=== PATIENT | female | born 1960 | race Caucasian/White ===

== ENCOUNTER 2016-09-12 14:04 | Inpatient (IN) | payer OTHER ==
[2016-09-12] VITALS (9 sets, daily range): BP systolic 121–146; BP diastolic 75–94; PULSE 64–72; TEMP 36.4–36.6; O2SAT 96–99; Ht 165.1 cm; Wt 98.5 kg
[~2016-09-12] VITALS: Ht 165.1 cm; Wt 98.5 kg
[2016-09-12] MEDS ORDERED: FURO-85 PO (14:35)
[2016-09-12] MEDS ORDERED: PRM625 PO (14:35)
[2016-09-12] MEDS ORDERED: ASCA500 PO (14:35)
[2016-09-12] MEDS ORDERED: DOCU-94 PO (14:35)
[2016-09-12] MEDS ORDERED: HYDR-5688 PO (14:35)
[2016-09-12] MEDS ORDERED: FLUO5CRE TOP (14:35)
[2016-09-12] MEDS ORDERED: ZVRO TOP (14:35)
[2016-09-12] MEDS ORDERED: LORA-741 PO (14:35)
[2016-09-12] MEDS ORDERED: PRED10TA PO (14:35)
[2016-09-12] MEDS ORDERED: POLY150C4 PO (14:35)
[2016-09-12] MEDS ORDERED: CHOL1000 PO (14:35)
[2016-09-12] MEDS ORDERED: OMEP20CA59 PO (14:35)
[2016-09-12] MEDS ORDERED: METO50TA7 PO (14:35)
[2016-09-12] MEDS ORDERED: TACR5CAP PO (14:35)
[2016-09-12] MEDS ORDERED: CALC-354 PO (14:35)
[2016-09-12 15:09] LABS: HEMATOCRIT 25.4 % (37-47); MEAN CELL VOLUME 84.4 fL (80-100); MEAN CORPUSCULAR HEMOGLOBIN 25.9 pg (25-34); MEAN CORPUSCULAR HGB CONC 30.7 g/dl (32-36); MEAN PLATELET VOLUME 10.9 fL (7.4-10.4); PLATELET COUNT 424 K/uL (130-400); RED BLOOD COUNT 3.01 M/uL (4.2-5.4); WHITE BLOOD COUNT 9.65 K/uL (4.8-10.8)
[2016-09-12 15:19] LABS: PARTIAL THROMBOPLASTIN RATIO 0.9; PROTHROMBIN TIME (PATIENT) 10.6 SECONDS (9.0-12.0)
[2016-09-12 15:29] LABS: ALT/SGPT 12 U/L (12-78); AST/SGOT 10 U/L (15-37); BLOOD UREA NITROGEN 35 mg/dl (7-18); BUN/CREATININE RATIO 20.4 (10-20); CALCIUM 8.6 mg/dl (8.5-10.1); CARBON DIOXIDE 23 mmol/L (21-32); CHLORIDE 107 mmol/L (98-107); GLUCOSE 121 mg/dl (70-99); POTASSIUM 4.4 mmol/L (3.5-5.1); SODIUM 140 mmol/L (136-145)
[2016-09-12 15:34] LABS: ALKALINE PHOSPHATASE 208 U/L (45-117)
[2016-09-12 15:40] LABS: BASO % 0.3 %; BASO ABS # 0.03 K/uL (0-0.2); COMPLETE YES; HYPOCHROMIA PRESENT; IG% 0.6 %; LYMPH % 21.7 %; LYMPH ABS # 2.09 K/uL (1.2-3.4); MONO % 2.7 %; NEUT % 73.7 %
--- NOTE | 2016-09-12 15:58 | DIAGNOSTIC IMAGING REPORT ---
LEFT LOWER EXTREMITY VENOUS DOPPLER CLINICAL HISTORY: Left leg pain. COMPARISON STUDY: No previous studies for comparison. TECHNIQUE: Sonography of the deep venous system of the left lower extremity was performed. Compression and augmentation were evaluated. FINDINGS: This exam was mildly compromised due to pain with compression. The common femoral, superficial femoral and popliteal veins were compressible. Augmentation was normal. Flow was shown within the deep calf vessels. IMPRESSION: Study mildly compromised due to difficulty with compression but no evidence of deep venous thrombus within the left lower extremity. Electronically signed by: Francisco Huggins M.D. 09/12/2016 3:56 PM Dictated Date/Time: 09/12/2016 3:54 PM
--- NOTE | 2016-09-12 16:14 | DIAGNOSTIC IMAGING REPORT ---
CHEST ONE VIEW PORTABLE CLINICAL HISTORY: sob eval for pnea dyspnea COMPARISON STUDY: No previous studies for comparison. FINDINGS: The bones soft tissues and hemidiaphragms are normal. The cardiomediastinal silhouette is normal. The lungs are clear. The pulmonary vasculature is normal. IMPRESSION: Negative chest. Electronically signed by: Nomi Borrero M.D. 09/12/2016 4:13 PM Dictated Date/Time: 09/12/2016 4:13 PM
[2016-09-12] MEDS ORDERED: ONDANSETRON INJ 2 MG/ML 2 ML VIAL IV PRN (16:15)
[2016-09-12] MEDS ORDERED: ACETAMINOPHEN 325 MG TAB PO PRN (16:15)
[2016-09-12] MEDS ORDERED: ASPEC81 PO (16:36)
[2016-09-12] MEDS ORDERED: FLUT0.15 (16:36)
[2016-09-12] MEDS ORDERED: LORAZEPAM 0.5 MG TAB PO PRN (16:45)
[2016-09-12] MEDS ORDERED: HYDROCODONE/ACETAMOPHEN 5/325MG TAB PO PRN (16:45)
[2016-09-12 17:07] LABS: FERRITIN 16.7 ng/ml (8.0-388.0)
--- NOTE | 2016-09-12 17:55 | DIAGNOSTIC IMAGING REPORT ---
CHEST CT WITHOUT CONTRAST CT DOSE: 341.15 mGy.cm HISTORY: possible lymphoma found in abdomen TECHNIQUE: Multiaxial CT images of the chest were performed without contrast. COMPARISON: None. FINDINGS: The central airways are patent. No pleural effusions. No pneumothorax. A few linear densities within the bilateral lower lung zones favor subsegmental atelectasis. Otherwise, the lungs are clear. No suspicious pulmonary nodules. There is 1 cm faint sclerotic focus within the left side of the T2 vertebral body. Limited views of the upper abdomen demonstrate a normal liver, spleen, and adrenal glands. The [place] kidneys are severely atrophic. No suprapatellar, mediastinal, or hilar lymphadenopathy. Normal caliber thoracic aorta. No enlarged axillary lymph nodes. IMPRESSION: 1. No lymphadenopathy within the chest. 2. Severely atrophic [place] kidneys. 3. An indeterminate 1 cm sclerotic focus within the T2 vertebral body. Bone scan may help for further evaluation to exclude a metabolically active lesion. Electronically signed by: Pablito Mead M.D. 09/12/2016 5:54 PM Dictated Date/Time: 09/12/2016 5:49 PM
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
--- NOTE | 2016-09-12 20:28 | EMERGENCY ROOM VISIT NOTE ---
History Report prepared by Christie: Arin Antunez Under the Supervision of: Dr. Shiva Castillo M.D. First contact with patient: 14:31 Chief Complaint: REFERRED BY DOCTOR Stated Complaint: DOCTOR REFERRAL History of Present Illness The patient is a 56 year old female who presents to the Emergency Room with complaints of worsening generalized abdominal pain over the past 2 months. The patient states that she initially developed some intermittent abdominal pain around [place], but it has since become more consistent and intense in severity over the past month. Today, she had blood work and a CT scan and was referred to the ED today due to a hemoglobin of 7.8. She has not yet heard back with her CT results. Currently, patient also complains of feeling short of breath with exertion and feeling generally tired. She notes that she injured her left [place] around [place] but did not follow up with her doctor until recently. She was told that she had an ulcerated vein and was referred to the wound clinic. She has not yet been seen by the wound clinic or put on antibiotics. Denies fever, nausea, vomiting, diarrhea, or other complaints. The patient is on Prograf due to a history of a kidney transplant. Her most recent transplant was about 8 years ago. She follows with Dr. Clay. Source of History: patient Onset: 2 months ago Position: abdomen Timing: worsening Associated Symptoms: + SOB, No diarrhea, No fevers, No nausea, No vomiting Note: Other symptoms: tired Review of Systems See HPI for pertinent positives & negatives. A total of 10 systems reviewed and were otherwise negative. Past Medical & Surgical Medical Problems: (1) Depression (2) Dermoid cyst of ovary (3) GERD (gastroesophageal reflux disease) (4) HTN (hypertension) Surgical Problems: (1) H/O tubal ligation (2) History of appendectomy (3) Renal transplant, status post (4) retina detachment repair (5) S/P lumbar fusion (6) S/P GENE-BSO Family History FH: breast cancer SISTER FH: lymphoma FATHER ( at age 72) Social History Smoking Status: Never Smoker Current/Historical Medications Scheduled Acyclovir (Zovirax), 1 APPLN TOP UD Ascorbic Acid (Vitamin C), 500 MG PO DAILY Aspirin (Aspirin EC Low Dose), 81 MG PO DAILY Calcium Carbonate-Cholecalcife (Caltrate 600+D), 1 TAB PO DAILY Cholecalciferol (Vitamin D3), 1 TAB PO DAILY Estrogens, Conjugated (Premarin), 0.625 MG PO DAILY Fluticasone Propionate (Nasal) (Flonase Allergy Relief), 2 SPRAYS NA DAILY Metoprolol Succ (Toprol Xl) (Toprol-Xl), 50 MG PO DAILY Omeprazole (Prilosec), 20 MG PO BID Polysaccharide Iron Complex (Ferrex 150), 150 MG PO BID Prednisone (Prednisone), 10 MG PO DAILY Tacrolimus (Prograf), 5 MG PO BID Scheduled PRN Docusate Sodium (Colace), 1 CAP PO BID PRN for Constipation Furosemide (Lasix), 20 MG PO DAILY PRN for edema Hydrocodone/Acetaminophen 5MG/325MG ([place] 5MG/325MG), 1 TABLET PO Q6 PRN for Pain Lorazepam (Ativan), 0.5 MG PO BID PRN for Anxiety Allergies Coded Allergies: No Known Allergies (Unverified , 09/12/16) Physical Exam Vital Signs Date Time Temp Pulse Resp B/P Pulse Ox O2 Delivery O2 Flow Rate FiO2 09/12/16 19:31 36.6 72 18 137/92 99 09/12/16 19:27 36.6 64 18 146/92 99 Room Air 09/12/16 19:22 36.6 64 18 146/92 99 09/12/16 17:30 72 18 148/98 99 Room Air 09/12/16 16:30 70 20 198/100 99 Room Air 09/12/16 16:13 68 09/12/16 14:56 65 18 142/100 95 Room Air 09/12/16 14:08 36.7 70 18 171/95 99 Room Air Physical Exam Constitutional: Vital signs reviewed. Eyes: Pupils are equal round reactive to light. Conjunctiva are noninjected. ENT: Pharynx is clear without erythema or exudate. Mucous membranes are moist. Neck supple without meningeal signs. Respiratory: Clear to auscultation bilaterally. Breath sounds are equal bilaterally. Cardiovascular: Regular rate and rhythm. No rubs or gallops. GI: Soft, nondistended, diffuse abdominal tenderness, no rebound. Bowel sounds are present. Musculoskeletal: No calf tenderness, left leg with a lateral quarter sized ulceration with mild surrounding erythema, without increased warmth or discharge. Integumentary: No cyanosis. Neurological: The patient is awake and alert. No focal deficits. Psychiatric: Normal affect. Medical Decision & Procedures ER Provider Diagnostic Interpretation: Radiology results as stated below per my review and the radiologist's interpretation: LEFT LOWER EXTREMITY VENOUS DOPPLER CLINICAL HISTORY: Left leg pain. COMPARISON STUDY: No previous studies for comparison. TECHNIQUE: Sonography of the deep venous system of the left lower extremity was performed. Compression and augmentation were evaluated. FINDINGS: This exam was mildly compromised due to pain with compression. The common femoral, superficial femoral and popliteal veins were compressible. Augmentation was normal. Flow was shown within the deep calf vessels. IMPRESSION: Study mildly compromised due to difficulty with compression but no evidence of deep venous thrombus within the left lower extremity. Electronically signed by: Francisco Huggins M.D. 09/12/2016 3:56 PM Dictated Date/Time: 09/12/2016 3:54 PM CHEST ONE VIEW PORTABLE CLINICAL HISTORY: sob eval for pnea dyspnea COMPARISON STUDY: No previous studies for comparison. FINDINGS: The bones soft tissues and hemidiaphragms are normal. The cardiomediastinal silhouette is normal. The lungs are clear. The pulmonary vasculature is normal. IMPRESSION: Negative chest. Electronically signed by: Nomi Borrero M.D. 09/12/2016 4:13 PM Dictated Date/Time: 09/12/2016 4:13 PM Laboratory Results 09/12/16 14:50 Red Blood Count 3.01, Mean Corpuscular Volume 84.4, Mean Corpuscular Hemoglobin 25.9, Mean Corpuscular Hemoglobin Concent 30.7, Mean Platelet Volume 10.9, Neutrophils (%) (Auto) 73.7, Lymphocytes (%) (Auto) 21.7, Monocytes (%) (Auto) 2.7, Eosinophils (%) (Auto) 1.0, Basophils (%) (Auto) 0.3, Neutrophils # (Auto) 7.11, Lymphocytes # (Auto) 2.09, Monocytes # (Auto) 0.26, Eosinophils # (Auto) 0.10, Basophils # (Auto) 0.03 09/12/16 14:50 Test 09/12/16 14:50 09/12/16 17:05 White Blood Count 9.65 K/uL (4.8-10.8) Red Blood Count 3.01 M/uL (4.2-5.4) Hemoglobin 7.8 g/dL (12.0-16.0) Hematocrit 25.4 % (37-47) Mean Corpuscular Volume 84.4 fL (80-100) Mean Corpuscular Hemoglobin 25.9 pg (25-34) Mean Corpuscular Hemoglobin Concent 30.7 g/dl (32-36) Platelet Count 424 K/uL (130-400) Mean Platelet Volume 10.9 fL (7.4-10.4) Neutrophils (%) (Auto) 73.7 % Lymphocytes (%) (Auto) 21.7 % Monocytes (%) (Auto) 2.7 % Eosinophils (%) (Auto) 1.0 % Basophils (%) (Auto) 0.3 % Neutrophils # (Auto) 7.11 K/uL (1.4-6.5) Lymphocytes # (Auto) 2.09 K/uL (1.2-3.4) Monocytes # (Auto) 0.26 K/uL (0.11-0.59) Eosinophils # (Auto) 0.10 K/uL (0-0.5) Basophils # (Auto) 0.03 K/uL (0-0.2) RDW Standard Deviation 43.2 fL (36.4-46.3) RDW Coefficient of Variation 14.0 % (11.5-14.5) Immature Granulocyte % (Auto) 0.6 % Immature Granulocyte # (Auto) 0.06 K/uL (0.00-0.02) Nucleated RBC Absolute Count (auto) 0.00 K/uL (0-0) Nucleated Red Blood Cells % 0.0 % Hypochromasia PRESENT Prothrombin Time 10.6 SECONDS (9.0-12.0) Prothromb Time International Ratio 1.0 (0.9-1.1) Activated Partial Thromboplast Time 22.4 SECONDS (21.0-31.0) Partial Thromboplastin Ratio 0.9 Anion Gap 10.0 mmol/L (3-11) Est Creatinine Clear Calc Drug Dose 42.6 ml/min Estimated GFR () 38.1 Estimated GFR (Non- 32.9 BUN/Creatinine Ratio 20.4 (10-20) Uric Acid 9.0 mg/dl (2.6-7.2) Calcium Level 8.6 mg/dl (8.5-10.1) Iron Level 13 mcg/dl (35-150) Total Iron Binding Capacity 298 mcg/dl (250-450) Transferrin 228 mg/dl (200-360) Transferrin % Saturation 4 % (15-50) Ferritin 16.7 ng/ml (8.0-388.0) Total Bilirubin 0.2 mg/dl (0.2-1) Direct Bilirubin < 0.1 mg/dl (0-0.2) Aspartate Amino Transf (AST/SGOT) 10 U/L (15-37) Alanine Aminotransferase (ALT/SGPT) 12 U/L (12-78) Alkaline Phosphatase 208 U/L (45-117) Lactate Dehydrogenase 322 U/L (84-246) Troponin I < 0.015 ng/ml (0-0.045) Total Protein 7.2 gm/dl (6.4-8.2) Albumin 2.7 gm/dl (3.4-5.0) Lipase 157 U/L (73-393) Hepatitis B Surface Antigen NEG (NEG) Hepatitis C Antibody NEG (NEG) Folate 21.09 ng/mL (>5.38) Laboratory results as reviewed by me. ECG Indication: SOB/dyspnea Rate (beats per minute): 73 Rhythm: normal sinus Findings: Q waves (V1 & V2), no ectopy ED Course 1435: The patient was evaluated in room B12A. A complete history and physical exam was performed. 1500: I talked to her about test results and she gave consent for blood transfusion. 1503: I discussed the case with Nehemias Leal PA-C - General Surgery. He will talk to Dr. Vargas about the case. 1524: I discussed the case with ALMITA Marshall - [facility]. The patient will be evaluated for further management. 1631: I reassessed the patient. The hospitalist was evaluating the patient. We are still waiting for blood products. 1711: I reassessed the patient. Blood products have not arrived yet. She was evaluated by Dr. Vargas who said there is no need for surgery at this time. 1914: I reassessed the patient. She was starting transfusion. Vital signs are stable. Medical Decision This is a 56-year-old female who presents with low hemoglobin and shortness of breath with abdominal pain. Differential diagnosis includes symptomatic anemia , GI bleed, diverticulitis, perforation, abscess, mass. I did perform a limited focused review of portions of the patient's old chart on the electronic medical record. The patient has had no prior visits to this hospital. I did obtain records from the [facility] system. Her hemoglobin was 7.8 today. She had a CAT scan which demonstrated a masslike circumferential thickening involving the small bowel within the central abdomen with enlarged mesenteric lymph nodes. This is suggestive of lymphoma. She also had trace high density fluid in the posterior pelvis suggestive of hemoperitoneum. I did evaluate the patient as noted above. After obtaining the results of the CT scan I did consult surgery. I did discuss the case with the surgical PA who also spoke to Dr. Baltazar. They recommended admission to medicine and they will consult. IV access was established. The patient was placed on a continuous payment collector. I did order and personally review the patient's 12- lead EKG and chest x-ray as described above. I did order and review the patient 's blood work as noted in the electronic medical record. She is significantly anemic. I did order a Doppler ultrasound of lower extremity. I did review the images myself as well as the radiology report as described above. There is no evidence of DVT in the left leg. I did obtain consent for transfusion due to her symptomatic anemia. She was transfused 2 units of crossmatched blood. Dr. Baltazar did see the patient in the emergency department. I did discuss case with the hospitalist and block and case maker. Consults Time Called: 1500 Consulting Physician: Nehemias Leal PA-C - General Surgery Returned Call: 1503 I discussed the case with him. He will talk to Dr. Vargas about the case. Additional Consults: Time Called: 1520 Consulted Physician: ALMITA Marshall - [facility] Returned Call: 1521 Additional Comments: I discussed the case with her. The patient will be evaluated for further management. Impression Primary Impression: Symptomatic anemia Additional Impressions: Abdominal mass Hemoperitoneum Critical Care I have personally spent greater than 30 minutes of critical care time in the direct management of this patient. This includes bedside care, interpretation of diagnostic studies, and testing, discussion with consultants, patient, and family members, and other required patient management activities. This 30 minutes is in excess of all separately billable procedures. Scribe Attestation The scribe's documentation has been prepared under my direct and personally reviewed by me in its entirety. I confirm that the note above accurately reflects all work, treatment, procedures, and medical decision making performed by me. Departure Information Dispostion Being Evaluated By Hospitalist Referrals Dontae Mei M.D. (PCP) Patient Instructions My [facility] Problem Qualifiers
[2016-09-12] MEDS ORDERED: SODIUM CHLORIDE 0.9% 1000ML 1,000 ML IV SCH (22:00)
[2016-09-12] MEDS: PANTOprazole SOD 40 MG TAB PO SCH (22:29)
[2016-09-12] MEDS: IRON COMPLEX POLYSACCHARIDE W/VIT C 150 MG CAP PO SCH (22:29)
[2016-09-12] MEDS: TACROLIMUS 1 MG CAP PO SCH (22:30)
[2016-09-12] MEDS: DOCUSATE SODIUM 100 MG CAP PO PRN (22:32)
[2016-09-13] VITALS (12 sets, daily range): BP systolic 115–152; BP diastolic 75–91; PULSE 64–72; TEMP 36.5–36.9; O2SAT 94–98
[2016-09-13 01:35] LABS: HEMATOCRIT 28.8 % (37-47)
--- NOTE | 2016-09-13 07:18 | SURGERY PROGRESS NOTE ---
DATE: 09/13/2016 Complaining of some lower abdominal pain, nothing more significant than she had last night. She points over to the infraumbilical area down towards her pelvis. Her last vitals showed a temperature of 36.9, pulse 69, respirations 18, blood pressure 152/91, O2 sats 94 on room air. She did receive 2 units of blood yesterday. Her laboratory this morning is pending, but it was 9.4 at 1:00 in the morning. The abdomen is unchanged from yesterday. She does have what appears to be an incarcerated supraumbilical. Cannot feel whether or not it is infraumbilical, but is not strangulated. Her abdomen certainly is not obstructive pattern. I am unable to at this point visualize the CAT scan that was done at [facility]. We just have the report. We will try to see if we can have it transferred here so I can go over with the radiologist, but I did tell Alva most likely she will need an exploration for 2 reasons; one is to fix that hernia that is symptomatic and also to get a tissue diagnosis what is going on in the belly. But again I have no real imaging to outline a more formative plan for surgery. We will try to get stabilize her hemodynamically today with her increased hemoglobin and I told her that tentatively we may have her on for tomorrow. She would like to have something p.o. for pain. She does well with tramadol and I took the liberty of ordering that.
--- NOTE | 2016-09-13 07:28 | DIAGNOSTIC IMAGING REPORT ---
ABDOMINAL ULTRASOUND TO ASSESS FOR HEMOPERITONEUM CLINICAL HISTORY: Follow-up of hemoperitoneum. Anemia. COMPARISON STUDY: None available at time of interpretation. FINDINGS: There is a small amount of fluid within the left lower quadrant, lateral to the renal transplant. This appears complex. In addition, there is a 3.8 x 3.3 x 3.2 cm mixed echogenicity round abnormality within left upper quadrant which is indeterminate. IMPRESSION: 1. Small amount of complex fluid within the left lower quadrant, lateral to the renal allograft. While nonspecific, this may reflect hemoperitoneum and could be correlated with prior CT. 2. 3.8 x 3.3 x 3.2 cm round mixed echogenicity abnormality within the left upper quadrant. This is indeterminate and could represent a pathologic lymph node, mass or less likely normal structure. Correlation with prior CT is recommended. Electronically signed by: Francisco Huggins M.D. 09/13/2016 7:26 AM Dictated Date/Time: 09/13/2016 7:15 AM
--- NOTE | 2016-09-13 08:49 | SURGERY PROGRESS NOTE ---
DATE: 09/13/2016 DATE: 09/13/2016. Approximately an hour ago I was able to review the CAT scan that was blown in from [facility] regarding Alva Cyr. I reviewed it with Dr. Huggins. The patient has significant dilated thickened small bowel nonobstructing with surrounding lymphadenopathy, most likely lymphoma. She also has symptomatic hernia. I tentatively had her on the schedule for tomorrow and then I discussed the case with Dr. Clay who already had been consulted on and felt that maybe given the circumstances of a renal transplant and the immunosuppressive therapy she may be best served transferring to a tertiary center for her care. I strongly agree with his recommendations. Therefore, we will discuss it later with the patient and he will discuss it with the medical service to possibly make those arrangements. I did discuss with Dr. Clay that this is nothing urgent that needs to be done but certainly needs to be addressed as far as her timing of diagnostic workup.
[2016-09-13 08:52] LABS: HEMATOCRIT 32.3 % (37-47); MEAN CELL VOLUME 84.3 fL (80-100); MEAN CORPUSCULAR HEMOGLOBIN 27.2 pg (25-34); MEAN CORPUSCULAR HGB CONC 32.2 g/dl (32-36); MEAN PLATELET VOLUME 10.8 fL (7.4-10.4); PLATELET COUNT 403 K/uL (130-400); RED BLOOD COUNT 3.83 M/uL (4.2-5.4); WHITE BLOOD COUNT 12.36 K/uL (4.8-10.8)
[2016-09-13] MEDS: FLUTICASONE PROPIONATE NA SPR 16 GM BTL SCH ×2 (08:55→09:12)
[2016-09-13] MEDS: PANTOprazole SOD 40 MG TAB PO SCH ×2 (08:56→21:12)
[2016-09-13] MEDS: TACROLIMUS 1 MG CAP PO SCH (08:56)
[2016-09-13] MEDS ORDERED: ASCORBIC ACID 500 MG TAB PO SCH (09:00)
[2016-09-13] MEDS ORDERED: ESTROGENS, CONJUGATED 0.625 MG TAB PO SCH (09:00)
[2016-09-13] MEDS ORDERED: CHOLECALCIFEROL 1000 INTER.UNIT TAB PO SCH (09:00)
[2016-09-13] MEDS ORDERED: CALCIUM 600MG + VIT D 400 IU TAB PO SCH (09:00)
[2016-09-13] MEDS: IRON COMPLEX POLYSACCHARIDE W/VIT C 150 MG CAP PO SCH ×2 (09:00→21:12)
[2016-09-13] MEDS ORDERED: METOPROLOL SUCC 50MG EXT REL TAB PO SCH (09:00)
[2016-09-13 09:14] LABS: BUN/CREATININE RATIO 18.8 (10-20); CREATININE 1.8 mg/dl (0.60-1.20); POTASSIUM 4.1 mmol/L (3.5-5.1)
[2016-09-13] MEDS: TRAMADOL HCL 50 MG TAB PO PRN ×2 (09:58→16:42)
--- NOTE | 2016-09-13 10:12 | NEPHROLOGY CONSULTATION ---
DATE OF CONSULTATION: 09/13/2016 DATE OF CONSULTATION: 09/13/2016. ATTENDING OF RECORD: Dr. Sethi. REASON FOR CONSULTATION: Renal transplant. 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 The patient did have a second donor transplant in 2005. No rejections of the second transplant. The patient with end-stage renal disease from [facility]. Biopsy of her original kidneys was done in [facility] in 1987. She does have history of hypertension as well as fibromyalgia. She does have a history of total hysterectomy for an ovarian mass about 4 years ago. Does have spinal stenosis with 2 herniated discs and underwent back surgery in November of 2015. The patient has been on Prograf 5 mg b.i.d. and prednisone 5 mg a day for underlying adrenal insufficiency as well as her transplant. Has been on prednisone since her first transplant in 1990. Not on any CellCept. Creatinine has been stable with no rejection of the second kidney. Does have underlying hypertension. Last Prograf level was last April at 5.8. Previous ones have ranged in the 6-7 range and no changes to her Prograf dosage in recent years. The patient was visiting in [place] and started to develop worsening abdominal pain, abdominal distention, decreased appetite for the past 4-6 weeks. The patient underwent imaging. The patient had a mass-like circumferential thickening involving segment of the small bowel in her central abdomen with multiple enlarged mesenteric lymph nodes, most suggestive of a neoplastic process with lymphoma most likely. 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 The patient also has a periumbilical hernia. The patient currently is on IV fluids, although eating and drinking well. REVIEW OF SYSTEMS: No fevers or chills. No significant weight loss, weight gain. No headaches, no blurry vision, no dysphagia, no nausea or vomiting, moving her bowels well. Does have abdominal bloating and abdominal pain. No rash or itching. No dysuria or hematuria. Does suffer from chronic back pain. All other review of systems otherwise negative. PAST MEDICAL HISTORY: [facility] requiring end-stage renal disease, underwent 2 transplants, fibromyalgia, hypertension, hyperlipidemia, skin cancer, degenerative disc disease, osteoporosis. PAST SURGICAL HISTORY: Two kidney transplants, tubal ligation, appendectomy, retinal surgery, L3-L4 fusion, hysterectomy secondary to an ovarian mass. FAMILY HISTORY: Significant for father with lymphoma. SOCIAL HISTORY: The patient is single. No smoking, no alcohol, no drugs. CURRENT MEDICATIONS: Vitamin C 500 mg a day, vitamin D 1000 units a day, estrogen 0.625 mg daily, Flonase 2 sprays daily, Toprol-XL 50 mg daily, prednisone 10 mg a day, Caltrate 1 tab daily, normal saline at 50 mL an hour, iron complex 150 mg p.o. b.i.d., Prograf 5 mg p.o. b.i.d., Protonix 40 mg p.o. b.i.d., Colace as needed. PHYSICAL EXAMINATION: VITAL SIGNS: Temperature 36.7, pulse 72, respiratory rate 18, blood pressure 147/87, satting 94% on room air. GENERAL: Awake, alert, oriented x3. EYES: No scleral icterus. EARS, NOSE, THROAT: Moist mucous membranes. NECK: Supple. PULMONARY: Clear to auscultation. CARDIAC: Regular rate and rhythm. ABDOMEN: Positive abdominal tenderness with distention. EXTREMITIES: No significant clubbing, cyanosis with some mild edema. NEUROLOGICALLY: Nonfocal. DERM: No rash or ulcers noted. LABORATORY DATA: Sodium was 140, potassium 4.4, chloride 107, bicarb is 23, BUN is 35, creatinine is 1.7, glucose 121, calcium is 8.6, albumin is 2.7. H\T\H 9.4 and 28.8, white count 9.6, platelet count is 424, hepatitis negative. INR is 1. Two units of leukoreduced irradiated packed red blood cells were transfused last night. Abdominal ultrasound shows small amount of complex fluid within the left lower quadrant lateral to the renal allograft. While nonspecific this may reflect a hemoperitoneum. There is 3.8 x 3.3 x 3.2 round mixed echogenicity abnormality within the left upper quadrant could represent a pathologic lymph node. Chest CT shows no lymphadenopathy within the chest, severely atrophic [place] kidneys, indeterminate sclerotic focus within T2 particular body. IMPRESSION AND PLAN: donor transplant with stable creatinine of 1.7 on Prograf 5 mg p.o. b.i.d. as well as prednisone 10 mg a day with drug levels between 5 to 8. 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 Would stop CellCept if she was on it but currently only on prednisone and Prograf. Would not recommend stopping the Prograf completely at this time, would just minimize the dose to level of 3 to 5. The difficulty here is that the Prograf levels are send out at [facility]. We will order level for tomorrow morning; however, feel the more prudent course would be to transfer to tertiary [facility] where we could get Prograf levels more quickly and adjust the dose accordingly. Could undergo surgery at the [facility] to be reviewed by the pathologist there and then if this is a lymphoma would be appropriately staged and started on appropriate medications. If it is decided that the patient is given rituximab we can continue to wean down the Prograf accordingly given that the rituximab would be protective for the kidney transplant. Case was discussed with Dr. Vargas of surgery as well as Dr. Sethi the primary hospitalist. Will reduce the Prograf to 4 mg p.o. b.i.d. Stop the IV fluids since the patient is eating and drinking well and follow levels as best as we can while we contact tertiary [facility] for possible transfer. Appreciate consultation. ANA
--- NOTE | 2016-09-13 12:03 | Progress Note ---
Internal Med Progress Note Date of Service: Sep 13, 2016. Provider Documentation: SUBJECTIVE: The patient was seen and examined Still has minimal Abdominal pain No Nausea and or vomiting No CP,palpitation,SOB OBJECTIVE: Vital Signs-as noted below Exam: General-no distress at rest Eyes-normal ENT-normal Neck-supple Lungs-Clear to ausucltate bilaterally Heart-Regular,no murmur Abdomen-Mildly distended,small Umbilical hernia Mildly tender central and lower abdomen Extremities-No edema Neuro-AAOx3 Lab data as noted below. 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 Masslike circumferential thickening involving a segment of small bowel in the central abdomen, with multiple enlarged mesenteric lymph nodes. Appearance is most suggestive of a neoplastic process, with lymphoma felt most likely. 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 2. Trace high-density fluid in the posterior pelvis suggestive of hemoperitoneum. -discussed with Dr. Benavides - will order hepatitis panel, LDH, uric acid, haptoglobin, peripheral smear - CT chest negative for further lymphadenectomy; did show possible lesion at T2 - surgery input appreciated -likely to need surgery and likely to get more benefit if it is done in a tertiary center HEMOPERITONEUM S/P History of Fall Hb dropped-received 2 units of PRBC ANEMIA - possibly due to underlying newly diagnosed lymphoma and CKD - transfuse with 2units irradiated PRBC due to hx transplant -has low Iron level -Iron supplement started EXERTIONAL SHORTNESS OF BREATH - likely due to symptomatic anemia - saturating well on room air - LLE doppler negative for DVT, CXR clear HX RENAL TRANSPLANT - Has been on Prograf -Nephrology consulted-appreciate input - BP stable, no role for stress dose steroids -Needs tight control of Prograf HTN - BP intermittently elevated, situational; continue metoprolol, make adjustments as needed LLE WOUND - no signs of infection - wound care consult DVT PROPHYLAXIS - SCDs due to hemoperitoneum DISPO Likely to be transferred to [place] Vital Signs: Date Time Temp Pulse Resp B/P Pulse Ox O2 Delivery O2 Flow Rate FiO2 09/13/16 08:01 97 Room Air 09/13/16 07:58 36.7 72 18 147/87 94 Room Air 09/13/16 04:21 36.9 69 18 152/91 94 Room Air 09/13/16 04:00 97 Room Air 09/13/16 00:00 97 Room Air 09/12/16 23:43 36.4 64 16 121/75 96 Room Air 09/12/16 22:04 36.6 69 18 144/87 97 09/12/16 22:00 36.6 18 144/87 09/12/16 22:00 99 Room Air 09/12/16 22:00 36.5 64 20 136/88 99 Room Air 09/12/16 22:00 36.6 18 144/87 97 Room Air 09/12/16 20:58 36.6 64 18 142/84 99 Room Air 09/12/16 20:53 36.6 64 20 142/84 99 09/12/16 20:30 69 16 142/84 97 09/12/16 20:00 68 15 143/94 98 09/12/16 19:31 36.6 72 18 137/92 99 09/12/16 19:27 36.6 64 18 146/92 99 Room Air 09/12/16 19:22 36.6 64 18 146/92 99 09/12/16 17:30 72 18 148/98 99 Room Air 09/12/16 16:30 70 20 198/100 99 Room Air 09/12/16 16:13 68 09/12/16 14:56 65 18 142/100 95 Room Air 09/12/16 14:08 36.7 70 18 171/95 99 Room Air Lab Results: Results Past 24 Hours Test 09/12/16 14:50 09/12/16 17:05 09/13/16 01:16 09/13/16 08:25 Range/Units White Blood Count 9.65 12.36 4.8-10.8 K/uL Red Blood Count 3.01 3.83 4.2-5.4 M/uL Hemoglobin 7.8 9.4 10.4 12.0-16.0 g/dL Hematocrit 25.4 28.8 32.3 37-47 % Mean Corpuscular Volume 84.4 84.3 80-100 fL Mean Corpuscular Hemoglobin 25.9 27.2 25-34 pg Mean Corpuscular Hemoglobin Concent 30.7 32.2 32-36 g/dl Platelet Count 424 403 130-400 K/uL Mean Platelet Volume 10.9 10.8 7.4-10.4 fL Neutrophils (%) (Auto) 73.7 % Lymphocytes (%) (Auto) 21.7 % Monocytes (%) (Auto) 2.7 % Eosinophils (%) (Auto) 1.0 % Basophils (%) (Auto) 0.3 % Neutrophils # (Auto) 7.11 1.4-6.5 K/uL Lymphocytes # (Auto) 2.09 1.2-3.4 K/uL Monocytes # (Auto) 0.26 0.11-0.59 K/uL Eosinophils # (Auto) 0.10 0-0.5 K/uL Basophils # (Auto) 0.03 0-0.2 K/uL RDW Standard Deviation 43.2 41.7 36.4-46.3 fL RDW Coefficient of Variation 14.0 13.7 11.5-14.5 % Immature Granulocyte % (Auto) 0.6 % Immature Granulocyte # (Auto) 0.06 0.00-0.02 K/uL Nucleated RBC Absolute Count (auto) 0.00 0-0 K/uL Nucleated Red Blood Cells % 0.0 % Hypochromasia PRESENT Prothrombin Time 10.6 9.0-12.0 SECONDS Prothromb Time International Ratio 1.0 0.9-1.1 Activated Partial Thromboplast Time 22.4 21.0-31.0 SECONDS Partial Thromboplastin Ratio 0.9 Sodium Level 140 142 136-145 mmol/L Potassium Level 4.4 4.1 3.5-5.1 mmol/L Chloride Level 107 109 98-107 mmol/L Carbon Dioxide Level 23 23 21-32 mmol/L Anion Gap 10.0 10.0 3-11 mmol/L Blood Urea Nitrogen 35 34 7-18 mg/dl Creatinine 1.70 1.80 0.60-1.20 mg/dl Est Creatinine Clear Calc Drug Dose 42.6 40.1 ml/min Estimated GFR () 38.1 35.6 Estimated GFR (Non- 32.9 30.7 BUN/Creatinine Ratio 20.4 18.8 10-20 Random Glucose 121 88 70-99 mg/dl Uric Acid 9.0 2.6-7.2 mg/dl Calcium Level 8.6 9.0 8.5-10.1 mg/dl Iron Level 13 35-150 mcg/dl Total Iron Binding Capacity 298 250-450 mcg/dl Transferrin 228 200-360 mg/dl Transferrin % Saturation 4 15-50 % Ferritin 16.7 8.0-388.0 ng/ml Total Bilirubin 0.2 0.2-1 mg/dl Direct Bilirubin < 0.1 0-0.2 mg/dl Aspartate Amino Transf (AST/SGOT) 10 15-37 U/L Alanine Aminotransferase (ALT/SGPT) 12 12-78 U/L Alkaline Phosphatase 208 45-117 U/L Lactate Dehydrogenase 322 84-246 U/L Troponin I < 0.015 0-0.045 ng/ml Total Protein 7.2 6.4-8.2 gm/dl Albumin 2.7 3.4-5.0 gm/dl Lipase 157 73-393 U/L Hepatitis B Surface Antigen NEG NEG Hepatitis C Antibody NEG NEG Folate 21.09 >5.38 ng/mL
[2016-09-13] MEDS ORDERED: SODIUM CHLORIDE 0.9% 1000ML 1,000 ML IV SCH (16:30)
--- NOTE | 2016-09-13 16:42 | Discharge Instructions ---
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 Instructions / Follow-Up Instructions / Follow-Up Transferred to [facility] and all inpatient medications were continued Current Hospital Diet Patient's current hospital diet: Renal Diet Discharge Diet Recommended Diet: Renal Diet Pending Studies Studies pending at discharge: no Medical Emergencies . Who to Call and When: Medical Emergencies: If at any time you feel your situation is an emergency, please call 911 immediately. . Non-Emergent Contact Non-Emergency issues call your: Primary Care Provider . . "Provider Documentation" section prepared by Leif Sethi. VTE Core Measure Inpt VTE Proph given/why not?: SCD's
[2016-09-13] MEDS ORDERED: FERROUS GLUCONATE 324 MG TAB PO SCH (17:00)
[2016-09-13 17:06] LABS: HEMATOCRIT 31.9 % (37-47)
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
[2016-09-13 19:13] LABS: URINE APPEARANCE CLOUDY (CLEAR); URINE BILIRUBIN NEG (NEG); URINE COLOR YELLOW; URINE EPITHELIAL CELL AUTO 20-30 /lpf (0-5); URINE NITRITE NEG (NEG); URINE SPECIFIC GRAVITY 1.011 (1.000-1.030); UROBILINOGEN NEG (NEG)
[2016-09-13 19:14] LABS: MANUAL MICROSCOPIC REQUIRED? NO; REVIEW REQ? NO
[2016-09-13] MEDS ORDERED: TACROLIMUS 1 MG CAP PO SCH (21:00)
[2016-09-13] MEDS: DOCUSATE SODIUM 100 MG CAP PO PRN (21:12)
--- NOTE | 2016-09-14 10:20 | EDITING REQUIRED CODING QUERY ---
CHRONIC KIDNEY DISEASE To promote full compliance with coding requirements relating to patient care, physician participation is requested in all cases of equipment monitor phototypesetting uncertainty. Please assist us with the question(s) below: Coding Question(s): The record reflects the following clinical findings: Please specify the known or suspected type by placing an "X" within the parenthesis (x). If other, please document type. Please document Staging if known: ( ) Stage I >90 Kidney damage with normal or elevated GFR. ( ) Stage II 60-89 Kidney damage with mildly decreased kidney function (x ) Stage III 30-59 Moderately decreased kidney function ( ) Stage IV 15-29 Severely decreased kidney function ( ) Stage V <15 Renal failure (or dialysis) ( ) End Stage ( ) Unknown ( ) NO CKD Thank you Johanne Zambrano
[2016-09-14 13:53] LABS: HAPTOGLOBIN TC 45427W 339 MG/DL (43-212)
[2016-09-27] MEDS ORDERED: OXYC1TAB3 PO (15:48)
[2016-09-27] MEDS ORDERED: SILV1CRE73 TOP (15:52)
[2016-10-30] MEDS ORDERED: MRLP17 PO (10:01)
[2016-10-30] MEDS ORDERED: DOCU-94 PO (10:01)
[2016-10-30] MEDS ORDERED: SNTO30 EXT (10:01)
[2016-10-30] MEDS ORDERED: HPRIS5M SQ (10:01)
[2016-10-30] MEDS ORDERED: ECRCR EXT (10:01)
== END 2016-09-13 22:39 | disposition short-term general hospital (02) | DRG 699 ==
LOC: ENRESERVDT → ENRESERVTM → C.EDB 14:06 → C.MED 16:09
PROVIDERS: ADMIT Internal Medicine; ATTEND Internal Medicine
DX: T86.19 Other complication of kidney transplant (principal); D47.Z1 Post-transplant lymphoproliferative disorder (PTLD); C85.93 Non-Hodgkin lymphoma, unspecified, intra-abdominal lymph nodes; S36.899A Unspecified injury of other intra-abdominal organs, initial encounter; K42.0 Umbilical hernia with obstruction, without gangrene; E27.40 Unspecified adrenocortical insufficiency; N05.5 Unspecified nephritic syndrome with diffuse mesangiocapillary glomerulonephritis; D63.0 Anemia in neoplastic disease; D63.1 Anemia in chronic kidney disease; S81.802A Unspecified open wound, left lower leg, initial encounter; N18.3 Chronic kidney disease, stage 3 (moderate); I12.9 Hypertensive chronic kidney disease with stage 1 through stage 4 chronic kidney disease, or unspecified chronic kidney disease; K21.9 Gastro-esophageal reflux disease without esophagitis; M79.7 Fibromyalgia; Z79.899 Other long term (current) drug therapy; Z79.82 Long term (current) use of aspirin; Z79.52 Long term (current) use of systemic steroids; Z94.0 Kidney transplant status; Z80.3 Family history of malignant neoplasm of breast; Z80.7 Family history of other malignant neoplasms of lymphoid, hematopoietic and related tissues; Y83.0 Surgical operation with transplant of whole organ as the cause of abnormal reaction of the patient, or of later complication, without mention of misadventure at the time of the procedure; V18.0XXA Pedal cycle driver injured in noncollision transport accident in nontraffic accident, initial encounter; Y93.55 Activity, bike riding; Y99.8 Other external cause status

== ENCOUNTER 2016-09-24 11:45 | Emergency (ER) | payer OTHER ==
[~2016-09-24] VITALS: Ht 165.1 cm; Wt 96.2 kg
[~2016-09-24 11:45] MED LIST: ASCA500 PO; ASPEC81 PO; CALC-354 PO; CHOL1000 PO; DOCU-94 PO; FLUT0.15; FURO-85 PO; HYDR-5688 PO; LORA-741 PO; METO50TA7 PO; OMEP20CA59 PO; POLY150C4 PO; PRED10TA PO; PRM625 PO; TACR5CAP PO; ZVRO TOP
[2016-09-24 11:48] VITALS: TEMP 37.3; Ht 165.1 cm; Wt 96.2 kg
[2016-09-24] MEDS ORDERED: SODIUM CHLORIDE 0.9% 1000ML 1,000 ML IV STA (13:04)
[2016-09-24] MEDS ORDERED: ONDANSETRON INJ 2 MG/ML 2 ML VIAL IV STA ×2 (13:04→15:48)
[2016-09-24] MEDS ORDERED: HYDROmorphone INJ 1 MG/ML SYR IV STA (13:05)
[2016-09-24 13:14] LABS: BASO % 0.4 %; BASO ABS # 0.05 K/uL (0-0.2); COMPLETE YES; EOS % 3.5 %; HEMATOCRIT 30.1 % (37-47); IG% 0.4 %; LYMPH % 17.6 %; LYMPH ABS # 2.01 K/uL (1.2-3.4); MEAN CELL VOLUME 83.8 fL (80-100); MEAN CORPUSCULAR HEMOGLOBIN 25.9 pg (25-34); MEAN CORPUSCULAR HGB CONC 30.9 g/dl (32-36); MEAN PLATELET VOLUME 11.6 fL (7.4-10.4); MONO % 4.7 %; NEUT % 73.4 %; PLATELET COUNT 466 K/uL (130-400); RED BLOOD COUNT 3.59 M/uL (4.2-5.4); WHITE BLOOD COUNT 11.41 K/uL (4.8-10.8)
[2016-09-24 13:21] LABS: BUN/CREATININE RATIO 15.7 (10-20); CALCIUM 9.3 mg/dl (8.5-10.1); CREATININE 1.6 mg/dl (0.60-1.20); POTASSIUM 4.2 mmol/L (3.5-5.1)
[2016-09-24] MEDS ORDERED: TACR1CAP PO (13:37)
[2016-09-24 13:38] LABS: URINE APPEARANCE CLEAR (CLEAR); URINE BILIRUBIN NEG (NEG); URINE COLOR YELLOW; URINE NITRITE NEG (NEG); URINE SPECIFIC GRAVITY 1.009 (1.000-1.030); UROBILINOGEN NEG (NEG); ZZUR CULT IF INDIC CLEAN CATCH NO
[2016-09-24] MEDS ORDERED: OPTIRAY 320 IV PRN (13:45)
[2016-09-24 13:47] LABS: MANUAL MICROSCOPIC REQUIRED? NO; REVIEW REQ? NO
--- NOTE | 2016-09-24 14:31 | DIAGNOSTIC IMAGING REPORT ---
ABDOMEN AND PELVIS CT WITHOUT CONTRAST CT DOSE: 1045.45 mGy.cm HISTORY: Pain lower abd pain TECHNIQUE: Multiaxial CT images of the abdomen and pelvis were performed without contrast. COMPARISON STUDY: Outside CT examination dated 09/12/2016][facility] FINDINGS: Interval development of a very small parenchymal infiltrate peripheral aspect right base. Left base is clear. Patient demonstrates a rather bulky central mesenteric and omental adenopathy. This appears similar as compared to the prior study. There is 6.5 x 5.5 cm necrotic masslike process within the central abdomen. This is immediately adjacent to the transverse colon as well as several loops small bowel. There is evidence for midline incision with a small fat-containing periumbilical hernia. The central and/or cavitary component of this mass now contains a degree of complex fluid. The adenopathy is stable to minimally progressive. Additional nodes measure up to 2.9 cm. There are stable postoperative changes to the lumbar spine. There is a trace amount of free fluid within the right paracolic gutter and cul-de-sac. This is unchanged. There is a left low pelvic renal transplant unchanged. [place] kidneys are atrophic. IMPRESSION: 1. Large mass/collection central abdomen slightly increased in prominence from the prior study. 2. Bulky central abdominal and mesenteric adenopathy slightly progressive from the prior exam. 3. Neoplasm is the diagnosis of exclusion, although a superimposed abscess centrally within the cavitary mass is not entirely excluded. 4. No evidence of bowel obstructive change. Electronically signed by: Nomi Borrero M.D. 09/24/2016 2:30 PM Dictated Date/Time: 09/24/2016 2:23 PM
[2016-09-24 15:45] VITALS: BP 116/71; PULSE 74; O2SAT 96
[2016-09-24] MEDS ORDERED: MoRPHine SULFATE 10 MG/ML CARP/VIAL IV STA (15:48)
[2016-09-24] MEDS ORDERED: OXYC1TAB3 PO (16:16)
--- NOTE | 2016-09-24 19:24 | EMERGENCY ROOM VISIT NOTE ---
History Report prepared by Christie: Verna Alan Under the Supervision of: Dr. Jean Claude Alvares D.O. First contact with patient: 12:51 Chief Complaint: ABDOMINAL PAIN Stated Complaint: STOMACH PROBLEMS, BREATHING PROBLEMS Nursing Triage Summary: Patient reports mid abd pain states she was transferred to [facility] [place] from here last week and that she has a mass on her small bowel. Patient states she is unable to tolerate the pain and she can't sleep. Patient is kidney transplant patient in 2005 History of Present Illness The patient is a 56 year old female who presents to the Emergency Room with complaints of constant abdominal pain beginning 1 month ago. The patient states that she was seen here 2 weeks ago for abdominal pain and she got a biopsy that revealed a large b-cell lymphoma. Today she reports that she is in too much pain and cannot wait for the follow-up appointment that she has scheduled for tomorrow with hematology oncology. She notes that she was given pain medication that has not relieved her symptoms so she took Vicodin that she had for back pain every 6 hours for 3 days. The Vicodin did not help so she stopped taking it 13 hours ago. The patient notes that she is not sure what they are doing about the mass in her stomach but she is supposed to find out at her follow-up tomorrow. She reports that laying down relieves some of her pain and standing and movement worsen the pain. The patient complains of nausea and difficulty sleeping. She denies any headache, change in vision, fevers, chest pain, shortness of breath, vomiting, diarrhea, new melena, blood in the stool, and pain with urination. Source of History: patient Onset: 1 month ago Position: abdomen Timing: constant Modifying Factors (Worsening): movement, other (standing) Modifying Factors (Relieving): other (laying down) Associated Symptoms: + nausea, No SOB, No chest pain, No diarrhea, No fevers , No headache, No melena, No urinary symptoms, No vomiting Note: She denies any change in vision, blood in the stool. Review of Systems See HPI for pertinent positives & negatives. A total of 10 systems reviewed and were otherwise negative. Past Medical & Surgical Medical Problems: (1) Depression (2) Dermoid cyst of ovary (3) GERD (gastroesophageal reflux disease) (4) HTN (hypertension) Surgical Problems: (1) H/O tubal ligation (2) History of appendectomy (3) Renal transplant, status post (4) retina detachment repair (5) S/P lumbar fusion (6) S/P GENE-BSO Family History FH: breast cancer SISTER FH: lymphoma FATHER ( at age 72) Social History Smoking Status: Never Smoker Marital Status: single Occupation Status: unemployed Current/Historical Medications Scheduled Acyclovir (Zovirax), 1 APPLN TOP UD Ascorbic Acid (Vitamin C), 500 MG PO DAILY Aspirin (Aspirin EC Low Dose), 81 MG PO DAILY Calcium Carbonate-Cholecalcife (Caltrate 600+D), 1 TAB PO DAILY Cholecalciferol (Vitamin D3), 1 TAB PO DAILY Estrogens, Conjugated (Premarin), 0.625 MG PO DAILY Fluticasone Propionate (Nasal) (Flonase Allergy Relief), 2 SPRAYS NA DAILY Metoprolol Succ (Toprol Xl) (Toprol-Xl), 50 MG PO DAILY Omeprazole (Prilosec), 20 MG PO BID Polysaccharide Iron Complex (Ferrex 150), 150 MG PO BID Prednisone (Prednisone), 10 MG PO DAILY Tacrolimus (Prograf), 4 MG PO BID Scheduled PRN Docusate Sodium (Colace), 1 CAP PO BID PRN for Constipation Furosemide (Lasix), 20 MG PO DAILY PRN for edema Hydrocodone/Acetaminophen 5MG/325MG ([place] 5MG/325MG), 1 TABLET PO Q6 PRN for Pain Lorazepam (Ativan), 0.5 MG PO BID PRN for Anxiety Oxycodone Immediate Rel Tab (Roxicodone Ir), 5 MG PO Q4H PRN for Severe Pain Allergies Coded Allergies: No Known Allergies (Unverified , 09/12/16) Physical Exam Vital Signs Date Time Temp Pulse Resp B/P Pulse Ox O2 Delivery O2 Flow Rate FiO2 09/24/16 15:45 74 18 116/71 96 Room Air 09/24/16 13:22 77 18 157/95 99 Room Air 09/24/16 11:48 37.3 83 20 162/92 96 Room Air Physical Exam GENERAL: sitting up in bed, disheveled, holding abdomen, no distress, non-toxic EYE EXAM: normal conjunctiva OROPHARYNX: no exudate, no erythema, lips, buccal mucosa, and tongue normal and mucous membranes are moist NECK: supple, no nuchal rigidity, no adenopathy, non-tender LUNGS: Clear to auscultation. Normal chest wall mechanics HEART: no murmurs, S1 normal and S2 normal ABDOMEN: old abdominal scars, firm mass appreciated just to the right and inferior to the umbilicus, normo-active bowel sounds, no rebound or guarding. BACK: Back is symmetrical on inspection and there is no deformity, no midline tenderness, no CVA tenderness. SKIN: no rashes and no bruising UPPER EXTREMITIES: upper extremities are grossly normal. LOWER EXTREMITIES: Pitting edema bilaterally. NEURO EXAM: Normal sensorium, cranial nerves II-XII grossly intact, normal speech, no gross weakness of arms, no gross weakness of legs. Medical Decision & Procedures ER Provider Diagnostic Interpretation: CT:Per my review, radiologist interpretation. ABDOMEN AND PELVIS CT WITHOUT CONTRAST FINDINGS: Interval development of a very small parenchymal infiltrate peripheral aspect right base. Left base is clear. Patient demonstrates a rather bulky central mesenteric and omental adenopathy. This appears similar as compared to the prior study. There is 6.5 x 5.5 cm necrotic masslike process within the central abdomen. This is immediately adjacent to the transverse colon as well as several loops small bowel. There is evidence for midline incision with a small fat-containing periumbilical hernia. The central and/or cavitary component of this mass now contains a degree of complex fluid. The adenopathy is stable to minimally progressive. Additional nodes measure up to 2.9 cm. There are stable postoperative changes to the lumbar spine. There is a trace amount of free fluid within the right paracolic gutter and cul-de-sac. This is unchanged. There is a left low pelvic renal transplant unchanged. [place] kidneys are atrophic. IMPRESSION: 1. Large mass/collection central abdomen slightly increased in prominence from the prior study. 2. Bulky central abdominal and mesenteric adenopathy slightly progressive from the prior exam. 3. Neoplasm is the diagnosis of exclusion, although a superimposed abscess centrally within the cavitary mass is not entirely excluded. 4. No evidence of bowel obstructive change. Electronically signed by: Nomi Borrero M.D. 09/24/2016 2:30 PM Dictated Date/Time: 09/24/2016 2:23 PM Laboratory Results 09/24/16 12:13 Red Blood Count 3.59, Mean Corpuscular Volume 83.8, Mean Corpuscular Hemoglobin 25.9, Mean Corpuscular Hemoglobin Concent 30.9, Mean Platelet Volume 11.6, Neutrophils (%) (Auto) 73.4, Lymphocytes (%) (Auto) 17.6, Monocytes (%) (Auto) 4.7, Eosinophils (%) (Auto) 3.5, Basophils (%) (Auto) 0.4, Neutrophils # (Auto) 8.36, Lymphocytes # (Auto) 2.01, Monocytes # (Auto) 0.54, Eosinophils # (Auto) 0.40, Basophils # (Auto) 0.05 09/24/16 12:13 Test 09/24/16 12:13 09/24/16 13:18 White Blood Count 11.41 K/uL (4.8-10.8) Red Blood Count 3.59 M/uL (4.2-5.4) Hemoglobin 9.3 g/dL (12.0-16.0) Hematocrit 30.1 % (37-47) Mean Corpuscular Volume 83.8 fL (80-100) Mean Corpuscular Hemoglobin 25.9 pg (25-34) Mean Corpuscular Hemoglobin Concent 30.9 g/dl (32-36) Platelet Count 466 K/uL (130-400) Mean Platelet Volume 11.6 fL (7.4-10.4) Neutrophils (%) (Auto) 73.4 % Lymphocytes (%) (Auto) 17.6 % Monocytes (%) (Auto) 4.7 % Eosinophils (%) (Auto) 3.5 % Basophils (%) (Auto) 0.4 % Neutrophils # (Auto) 8.36 K/uL (1.4-6.5) Lymphocytes # (Auto) 2.01 K/uL (1.2-3.4) Monocytes # (Auto) 0.54 K/uL (0.11-0.59) Eosinophils # (Auto) 0.40 K/uL (0-0.5) Basophils # (Auto) 0.05 K/uL (0-0.2) RDW Standard Deviation 46.2 fL (36.4-46.3) RDW Coefficient of Variation 14.9 % (11.5-14.5) Immature Granulocyte % (Auto) 0.4 % Immature Granulocyte # (Auto) 0.05 K/uL (0.00-0.02) Anion Gap 15.0 mmol/L (3-11) Est Creatinine Clear Calc Drug Dose 44.5 ml/min Estimated GFR () 41.0 Estimated GFR (Non- 35.4 BUN/Creatinine Ratio 15.7 (10-20) Calcium Level 9.3 mg/dl (8.5-10.1) Total Bilirubin 0.3 mg/dl (0.2-1) Direct Bilirubin 0.1 mg/dl (0-0.2) Aspartate Amino Transf (AST/SGOT) 19 U/L (15-37) Alanine Aminotransferase (ALT/SGPT) 15 U/L (12-78) Alkaline Phosphatase 175 U/L (45-117) Total Protein 7.8 gm/dl (6.4-8.2) Albumin 2.6 gm/dl (3.4-5.0) Lipase 128 U/L (73-393) Urine Color YELLOW Urine Appearance CLEAR (CLEAR) Urine pH 5.0 (4.5-7.5) Urine Specific [place] 1.009 (1.000-1.030) Urine Protein NEG (NEG) Urine Glucose (UA) NEG (NEG) Urine Ketones TRACE (NEG) Urine Occult Blood NEG (NEG) Urine Nitrite NEG (NEG) Urine Bilirubin NEG (NEG) Urine Urobilinogen NEG (NEG) Urine Leukocyte Esterase NEG (NEG) Urine WBC (Auto) 0 /hpf (0-5) Urine RBC (Auto) 0-4 /hpf (0-4) Urine Hyaline Casts (Auto) 1-5 /lpf (0-5) Urine Epithelial Cells (Auto) 10-20 /lpf (0-5) Urine Bacteria (Auto) NEG (NEG) Laboratory results per my review. Medications Administered Medications (Trade) Dose Ordered Sig/Cherry Route Start Time Stop Time Status Last Admin Dose Admin Sodium Chloride (Nss 1000ml) 1,000 ml @ 999 mls/hr Q1H1M STAT IV 09/24/16 13:04 09/24/16 14:04 DC 09/24/16 13:19 999 MLS/HR Ondansetron HCl (Zofran Inj) 4 mg NOW STAT IV 09/24/16 13:04 09/24/16 13:06 DC 09/24/16 13:19 4 MG Hydromorphone HCl (Dilaudid Inj) 1 mg NOW STAT IV 09/24/16 13:05 09/24/16 13:06 DC 09/24/16 13:19 1 MG Morphine Sulfate (MoRPHine SULFATE INJ) 6 mg NOW STAT IV 09/24/16 15:48 09/24/16 15:49 DC 09/24/16 15:57 6 MG Ondansetron HCl (Zofran Inj) 4 mg NOW STAT IV 09/24/16 15:48 09/24/16 15:49 DC 09/24/16 15:56 4 MG ED Course ED COURSE: Vital signs were reviewed and normal The patients medical record was reviewed The above diagnostic studies were performed and reviewed. ED treatments and interventions as stated above. 1254: The patient was evaluated in room C2B. A complete history and physical examination was performed. 1304: Zofran Inj 4mg IV, Sodium Chloride 1000 ml @ 999 mls/hr IV, Dilaudid Inj 1mg IV. 1548: I reevaluated and updated the patient. 1548: Zofran Inj 4mg IV, Morphine Sulfate 6mg IV. 1555: I spoke to Dr. Ramone Haile. He believes that it is most likely tumor necrosis. 1613: I spoke to Dr. Alaniz he says that it is necrosis and not an abscess. He will see her tomorrow. 1618: Upon reevaluation, the patient is hemodynamically stable.I discussed my findings with the patient and she understands and agrees with the treatment plan. Based on the patients age, coexisting illnesses, exam and lab findings the decision to treat as an outpatient was made. The patient remained stable while under my care. The patient appeared well at the time of discharge. Medical Decision Differential diagnoses includes but is not limited to gastritis, peptic ulcer disease, GERD, gallbladder disease, pancreatitis, small bowel obstruction, acute coronary syndrome, pericarditis, ischemic bowel, irritable bowel disease, irritable bowel syndrome, appendicitis, diverticulitis, malignancy, hernia, urinary tract infection, torsion, /ectopic , perforation, trauma, infectious. Patient is a 56-year-old female who presents the ER for abdominal pain. She notes that this has been present for over 2 months and gradually worsening. She notes that she was seen here before for this and was found that it is secondary to lymphoma. She is transferred to [facility] hasn't had a biopsy of the mass which did show lymphoma. Today she notices the pain has been getting worse. I performed a CT of her abdomen pelvis which shows worsening of her lymphoma along with fluid and a small amount of air in the middle of the mass. I discussed this with radiology and they feel that this is likely secondary to the necrosis of the tumor. They noted that although very unlikely could be an abscess. I discussed this with general surgery who agrees and oncology who will see her tomorrow. Oncology notes that this is very unlikely and that this is consistent with a necrotic mass. She was given 2 doses of IV narcotics along with Zofran. Following this she requested to eat and drink. She was feeling better. There is no significant leukocytosis. Patient was afebrile. Patient has gradually worsened. I do not feel that this is an abscess either. Creatinine is improved at 1.6. Hemoglobin stable. She was discharged to follow -up with oncology tomorrow. Discussed with Pt concerning signs and symptoms to watch out for. Pt was instructed to follow up with their PCP and discussed with the patient their option to return to the ED at anytime for persistent or worsening symptoms. The appropriate anticipatory guidance and out-patient management, including indications for return to the emergency department, were explained at length to the patient and understood. Consults Time Called: 1550 Consulting Physician: Dr. Ramone Haile Returned Call: [address] Ramone Haile. He believes that it is most likely tumor necrosis. Additional Consults: Time Called: 1610 Consulted Physician: Dr. Alaniz Returned Call: 1613 Additional Comments: I spoke to Dr. Alaniz he says that it is necrosis and not an abscess. He will see her tomorrow. Impression Primary Impression: Lower abdominal pain Additional Impressions: Lymphoma Anemia Scribe Attestation The scribe's documentation has been prepared under my direction and personally reviewed by me in its entirety. I confirm that the note above accurately reflects all work, treatment, procedures, and medical decision making performed by me. Departure Information Dispostion Home / Self-Care Prescriptions Oxycodone Immediate Rel Tab (ROXICODONE IR) 5 Mg Tab 5 MG PO Q4H Y for Severe Pain, #20 TAB Prov: Jean Claude Alvares, DO 09/24/16 Referrals Dontae Mei M.D. (PCP) Forms Call Back Authorization, HOME CARE DOCUMENTATION FORM, IMPORTANT VISIT INFORMATION Patient Instructions Abdominal Pain - [facility], [facility] Additional Instructions Please follow up with oncology with in the next 24 hours. Any worsening of your symptoms, please return to the ED immediately. This includes any fevers greater than 100.4 worsening pain, passing out, unable to eat or drink, or any other concerning signs or symptoms from your standpoint. You were given medications during this visit that will inhibit your ability to drive, operate machinery and work. Please do NOT drive, operate machinery or work for the next 12hrs. You were also given a prescription for a narcotic/oxy IR. While taking this medication you should also not drive, operate machinery and or work. You should also not take any Vicodin or Ultram/tramadol in combination with this medication. Problem Qualifiers Additional Impressions: Lymphoma Lymphoma type: unspecified type Lymphoma site: unspecified region Qualified Codes: C85.90 - Non-Hodgkin lymphoma, unspecified, unspecified site Anemia Anemia type: unspecified type Qualified Codes: D64.9 - Anemia, unspecified
[2016-09-27] MEDS ORDERED: OXYC1TAB3 PO (15:48)
[2016-09-27] MEDS ORDERED: SILV1CRE73 TOP (15:52)
[2016-10-30] MEDS ORDERED: SNTO30 EXT (10:01)
[2016-10-30] MEDS ORDERED: HPRIS5M SQ (10:01)
[2016-10-30] MEDS ORDERED: MRLP17 PO (10:01)
[2016-10-30] MEDS ORDERED: DOCU-94 PO (10:01)
[2016-10-30] MEDS ORDERED: ECRCR EXT (10:01)
== END 2016-09-24 16:29 | disposition home or self-care (01) ==
LOC: C.EDB 11:46 → C.EDC 16:29
DX: C85.90 Non-Hodgkin lymphoma, unspecified, unspecified site (principal); D64.9 Anemia, unspecified; Z94.0 Kidney transplant status; F32.9 Major depressive disorder, single episode, unspecified; K21.9 Gastro-esophageal reflux disease without esophagitis; I10 Essential (primary) hypertension; Z98.51 Tubal ligation status; Z98.1 Arthrodesis status; Z90.710 Acquired absence of both cervix and uterus; Z80.3 Family history of malignant neoplasm of breast; Z80.7 Family history of other malignant neoplasms of lymphoid, hematopoietic and related tissues; Z79.82 Long term (current) use of aspirin; Z79.899 Other long term (current) drug therapy

== ENCOUNTER 2016-10-12 21:32 | Emergency (ER) | payer OTHER ==
[~2016-10-12] VITALS: Ht 157.5 cm; Wt 92.0 kg
[~2016-10-12 21:32] MED LIST changes: -HYDR-5688 PO; +OXYC1TAB3 PO; +SILV1CRE73 TOP; +TACR1CAP PO; -TACR5CAP PO
[2016-10-12 21:43] VITALS: TEMP 36.7; Ht 157.5 cm; Wt 92.0 kg
[2016-10-12 22:35] LABS: HEMATOCRIT 33.4 % (37-47); MEAN CELL VOLUME 82.3 fL (80-100); MEAN CORPUSCULAR HEMOGLOBIN 26.1 pg (25-34); MEAN CORPUSCULAR HGB CONC 31.7 g/dl (32-36); MEAN PLATELET VOLUME 11.3 fL (7.4-10.4); PLATELET COUNT 257 K/uL (130-400); RED BLOOD COUNT 4.06 M/uL (4.2-5.4); WHITE BLOOD COUNT 4.17 K/uL (4.8-10.8)
[2016-10-12 22:44] LABS: ALT/SGPT 26 U/L (12-78); BLOOD UREA NITROGEN 39 mg/dl (7-18); BUN/CREATININE RATIO 27.8 (10-20); CARBON DIOXIDE 36 mmol/L (21-32); CHLORIDE 95 mmol/L (98-107); GLUCOSE 127 mg/dl (70-99); POTASSIUM 3.6 mmol/L (3.5-5.1); SODIUM 138 mmol/L (136-145)
[2016-10-12 22:48] LABS: ALB/GLOB RATIO 0.6 (0.9-2); ALKALINE PHOSPHATASE 86 U/L (45-117); AST/SGOT 12 U/L (15-37)
--- NOTE | 2016-10-12 22:57 | DIAGNOSTIC IMAGING REPORT ---
SINGLE VIEW CHEST CLINICAL HISTORY: Atypical chest pain. FINDINGS: An AP, portable, upright chest radiograph is compared to chest x-ray and chest CT dated 09/12/2016. The examination is degraded by portable technique, large body habitus, and patient rotation. A right-sided central venous infusion port is new from previous. The tip of the catheter projects over the SVC. The heart is top normal for projection. The pulmonary vascular structures noncongested. Chronic interstitial thickening is unchanged. The lungs and pleural spaces are otherwise clear. No pneumothorax is seen. The skeletal structures are osteopenic. The bony thorax is grossly intact. IMPRESSION: 1. No active disease in the chest. 2. A right sided central venous infusion port is new from previous. Electronically signed by: Agustín Gannon M.D. 10/12/2016 10:56 PM Dictated Date/Time: 10/12/2016 10:54 PM
[2016-10-12 22:58] LABS: PROTHROMBIN TIME (PATIENT) 10.9 SECONDS (9.0-12.0)
[2016-10-12] MEDS ORDERED: MoRPHine SULFATE 10 MG/ML CARP/VIAL IV STA (23:23)
[2016-10-12] MEDS ORDERED: ONDANSETRON INJ 2 MG/ML 2 ML VIAL IV STA (23:23)
[2016-10-12] MEDS ORDERED: SODIUM CHLORIDE 0.9% 1000ML 1,000 ML IV STA ×2 (23:23)
[2016-10-12 23:38] VITALS: O2SAT 98
--- NOTE | 2016-10-12 23:38 | EMERGENCY ROOM VISIT NOTE ---
History Report prepared by Christie: Qing Wilson Under the Supervision of: Dr. Meghan Wright D.O. First contact with patient: 23:05 Chief Complaint: CHEST PAIN Stated Complaint: CHEMO PATIENT - KIDNEY TRANSPLANT Nursing Triage Summary: Patient c/o chest pain and N/V following chemo treatments. History of Present Illness The patient is a 56 year old female who presents to the Emergency Room with complaints of persistent abdominal pain that began prior to arrival. She currently rates her discomfort as a 6/10 in severity. The patient states that she is currently undergoing chemotherapy at the [facility] in [place] for her lymphoma. She states that Sunday she had a treatment and then Sunday she had a follow up drug. The patient states that she received 2 units of blood Sunday evening and then came home on Sunday. The patient's states that the patient's cancer is very aggressive, noting that her tumor doubled in size in one week. The patient states that she has home nurses come to her home and states that she was found to have an elevated blood pressure. The patient states that today she has had difficulty swallowing which is a side effect from her treatment. The patient's notes that the patient has a history of a kidney transplant in 2005. The patient states that her nurses told her to come to the emergency department for further evaluation due to her elevated blood pressure and uncontrolled pain. Per the patient's , the patient takes 15 mg of oxycodone at home for her discomfort without relief. The patient notes difficulty breathing today secondary to her abdominal pain. She states that she hasn't eaten anything in two days. The patient notes that she has been constipated. She reports normal urination. The patient notes a surgical history of appendectomy. The patient had a PET/CT on 09/28 which showed extensive supra and infra diaphragmatic adenopathy compatible with lymphoma, and mural thickening of the small bowel, probably lymphomatous involvement. Source of History: patient, spouse/significant other () Onset: prior to arrival Position: abdomen Symptom Intensity: 12/30 Timing: other (persistent) Note: Associated Symptoms: difficulty urinating, constipation, elevated blood pressure , difficulty swallowing Review of Systems See HPI for pertinent positives & negatives. A total of 10 systems reviewed and were otherwise negative. Past Medical & Surgical Medical Problems: (1) Depression (2) Dermoid cyst of ovary (3) GERD (gastroesophageal reflux disease) (4) HTN (hypertension) Surgical Problems: (1) H/O tubal ligation (2) History of appendectomy (3) Renal transplant, status post (4) retina detachment repair (5) S/P lumbar fusion (6) S/P GENE-BSO Family History FH: breast cancer SISTER FH: lymphoma FATHER ( at age 72) Social History Smoking Status: Never Smoker Marital Status: Occupation Status: disabled Current/Historical Medications Scheduled Ascorbic Acid (Vitamin C), 500 MG PO QAM Aspirin (Aspirin EC Low Dose), 81 MG PO QAM Calcium Carbonate-Cholecalcife (Caltrate 600+D), 1 TAB PO QAM Cholecalciferol (Vitamin D3), 1,000 UNITS PO QAM Ciprofloxacin Hcl (Cipro), 500 MG PO BID Docusate Sodium (Colace), 100 MG PO BID Estrogens, Conjugated (Premarin), 0.625 MG PO QAM Fluconazole (Diflucan), 200 MG PO DAILY Fluticasone Propionate (Nasal) (Flonase Allergy Relief), 2 SPRAYS NA DAILY Metoprolol Succ (Toprol Xl) (Toprol-Xl), 50 MG PO QAM Omeprazole (Prilosec), 20 MG PO BID Pantoprazole (Protonix), 40 MG PO QAM Polysaccharide Iron Complex (Ferrex 150), 150 MG PO BID Prednisone (Prednisone), 20 MG PO DAILY Silver Sulfadiazine (Silvadene), 1 APPLN TOP DAILY Tacrolimus (Prograf), 4 MG PO BID Scheduled PRN Acetaminophen (Tylenol), 650 MG PO Q6H PRN for PRIOR TO BLOOD PRODUCTS Furosemide (Lasix), 20 MG PO DAILY PRN for edema Lorazepam (Ativan), 0.5 MG PO BID PRN for Anxiety Ondansetron Hcl (Zofran), 4 MG PO Q8 PRN for Nausea Oxycodone Ir (Roxicodone Ir), 15 MG PO Q3H PRN for Pain Prochlorperazine Maleate (Compazine), 10 MG PO Q6H PRN for Nausea or Vomiting Allergies Coded Allergies: No Known Allergies (Unverified , 09/27/16) Physical Exam Vital Signs Date Time Temp Pulse Resp B/P Pulse Ox O2 Delivery O2 Flow Rate FiO2 10/13/16 02:14 68 18 131/78 97 10/13/16 01:33 69 10/13/16 01:30 67 20 125/76 96 Room Air 10/13/16 00:30 71 20 149/89 98 Nasal Cannula 2.0 10/12/16 23:38 98 Nasal Cannula 2.0 10/12/16 23:37 68 14 136/88 98 Nasal Cannula 2.0 10/12/16 22:17 95 Room Air 10/12/16 22:03 73 10/12/16 21:50 95 Room Air 10/12/16 21:43 36.7 86 16 133/92 95 Room Air Physical Exam General: Uncomfortable and slightly lethargic appearing. HEENT: Head - normocephalic and atraumatic Pupils are equal, round, and reactive to light. Extraocular eye muscles are intact, and mild scleral icterus. Nose - moist nasal mucosa without discharge. Mouth - Mouth and lips are extremely dry. Oropharynx is nonerythematous and there is no tonsillar exudate or edema noted. Neck: Supple; no JVD, nuchal rigidity, cervical lymphadenopathy. Heart: Regular rate and rhythm. There is a normal S1 and S2 with no murmurs, clicks, or gallops appreciated. Lungs: Clear to auscultation bilaterally with no wheezes, rales, or rhonchi. Abdomen: Soft, diffusely tender to palpation, nondistended, with good bowel sounds. There are no palpable pulsatile masses or hepatosplenomegaly. There is no guarding, rigidity, or rebound noted. Extremities: No evidence of cyanosis, clubbing, or edema. There are easily palpable peripheral pulses. Skin: warm and dry with poor turgor and no rashes. Slightly pale. Medical Decision & Procedures ER Provider Diagnostic Interpretation: X-ray results as stated below per interpretation by me and the radiologist: SINGLE VIEW CHEST CLINICAL HISTORY: Atypical chest pain. FINDINGS: An AP, portable, upright chest radiograph is compared to chest x-ray and chest CT dated 09/12/2016. The examination is degraded by portable technique, large body habitus, and patient rotation. A right-sided central venous infusion port is new from previous. The tip of the catheter projects over the SVC. The heart is top normal for projection. The pulmonary vascular structures noncongested. Chronic interstitial thickening is unchanged. The lungs and pleural spaces are otherwise clear. No pneumothorax is seen. The skeletal structures are osteopenic. The bony thorax is grossly intact. IMPRESSION: 1. No active disease in the chest. 2. A right sided central venous infusion port is new from previous. Electronically signed by: Agustín Gannon M.D. 10/12/2016 10:56 PM Dictated Date/Time: 10/12/2016 10:54 PM Abdominal X-ray: no evidence of bowel obstruction, no free air, significant colonic fecal retention CT results as stated below per my review and radiologist interpretation: CT Abdomen and Pelvis: Compared with 09/24/16 Large left of midline mid abdominal mesenteric mass 5.5 cm with thickened wall and surrounding inflammatory changes with liquefied center maybe a necrotic mass or lymph node with new inflammatory changes, possible abscess. This is located between the transverse colon and thickened loop of small bowel and may have been on the prior study measuring 2.5 cm. Remainder of the mesenteric lymph nodes have gotten smaller in size. Patulous loop of small bowel in the mid abdomen with thickened wall slightly less conspicuous on this study. No bowel obstruction. Gallstones. Atrophic lower [place] bilateral kidneys. Left iliac fossa renal transplant unremarkable. Bibasilar lung atelectasis. Radiologist: Kenisha Ivan MD Study ready at 0105 and initial results transmitted at 0131 Laboratory Results 10/12/16 22:10 Red Blood Count 4.06, Mean Corpuscular Volume 82.3, Mean Corpuscular Hemoglobin 26.1, Mean Corpuscular Hemoglobin Concent 31.7, Mean Platelet Volume 11.3 10/12/16 22:10 Test 10/12/16 22:10 10/12/16 22:34 White Blood Count 4.17 K/uL (4.8-10.8) Red Blood Count 4.06 M/uL (4.2-5.4) Hemoglobin 10.6 g/dL (12.0-16.0) Hematocrit 33.4 % (37-47) Mean Corpuscular Volume 82.3 fL (80-100) Mean Corpuscular Hemoglobin 26.1 pg (25-34) Mean Corpuscular Hemoglobin Concent 31.7 g/dl (32-36) Platelet Count 257 K/uL (130-400) Mean Platelet Volume 11.3 fL (7.4-10.4) RDW Standard Deviation 48.3 fL (36.4-46.3) RDW Coefficient of Variation 16.0 % (11.5-14.5) Nucleated RBC Absolute Count (auto) 0.00 K/uL (0-0) Neutrophils % (Manual) 66.4 % Lymphocytes % (Manual) 11.5 % Variant Lymphocytes % (manual) 17.7 % Eosinophils % (Manual) 4.4 % Nucleated Red Blood Cells % 0.0 % Neutrophils # (Manual) 2.77 K/uL (1.4-6.5) Total Absolute Neutrophils 2.77 K/uL (1.4-6.5) Lymphocytes # (Manual) 0.48 K/uL (1.2-3.4) Absolute Variant Lymphocytes 0.74 K/uL Total Absolute Lymphocytes 1.22 K/uL (1.2-3.4) Eosinophils # (Manual) 0.18 K/uL (0-0.5) Hypersegmented Polys 1+ Toxic Granulation 1+ Toxic Vacuolation 1+ Prothrombin Time 10.9 SECONDS (9.0-12.0) Prothromb Time International Ratio 1.0 (0.9-1.1) Activated Partial Thromboplast Time 25.0 SECONDS (21.0-31.0) Partial Thromboplastin Ratio 1.0 Anion Gap 7.0 mmol/L (3-11) Est Creatinine Clear Calc Drug Dose 46.8 ml/min Estimated GFR () 48.2 Estimated GFR (Non- 41.6 BUN/Creatinine Ratio 27.8 (10-20) Calcium Level 9.0 mg/dl (8.5-10.1) Total Bilirubin 0.9 mg/dl (0.2-1) Aspartate Amino Transf (AST/SGOT) 12 U/L (15-37) Alanine Aminotransferase (ALT/SGPT) 26 U/L (12-78) Alkaline Phosphatase 86 U/L (45-117) Total Creatine Kinase 23 U/L (26-192) Creatine Kinase MB < 0.5 ng/ml (0.5-3.6) Creatine Kinase MB Ratio (0-3.0) Total Protein 6.5 gm/dl (6.4-8.2) Albumin 2.4 gm/dl (3.4-5.0) Globulin 4.1 gm/dl (2.5-4.0) Albumin/Globulin Ratio 0.6 (0.9-2) Bedside Troponin I 0.000 ng/ml (0-0.045) Laboratory results per my review. Medications Administered Medications (Trade) Dose Ordered Sig/Cherry Route Start Time Stop Time Status Last Admin Dose Admin Sodium Chloride 1,000 ml @ 999 mls/hr Q1H1M STAT IV 10/12/16 23:23 10/13/16 00:23 DC 10/12/16 23:35 999 MLS/HR Sodium Chloride (Nss 1000ml) 1,000 ml @ 250 mls/hr Q4H STAT IV 10/12/16 23:23 10/13/16 02:44 DC 10/12/16 23:35 250 MLS/HR Morphine Sulfate (MoRPHine SULFATE INJ) 6 mg NOW STAT IV 10/12/16 23:23 10/12/16 23:24 DC 10/12/16 23:37 6 MG Ondansetron HCl (Zofran Inj) 4 mg NOW STAT IV 10/12/16 23:23 10/12/16 23:24 DC 10/12/16 23:36 4 MG Morphine Sulfate (MoRPHine SULFATE INJ) 4 mg NOW STAT IV 10/13/16 00:58 10/13/16 00:59 DC 10/13/16 01:03 4 MG Heparin Sodium (Porcine) (Heparin 100 Unit/ml 5ml Flush) 5 ml STK-MED ONCE .ROUTE 10/13/16 01:56 10/13/16 02:00 DC 10/13/16 02:06 5 ML Procedure The patient was treated with Zofran Inj 4 mg IV, Morphine Sulfate 6 mg IV, Sodium Chloride 1000 ml @ 250 mls/hr IV, Sodium Chloride 1000 ml @ 999 mls/hr IV , Morphine Sulfate 4 mg IV. ECG Indication: abdominal pain Rate (beats per minute): 68 Rhythm: normal sinus Findings: no acute ischemic change, no ectopy ED Course 2316: Past medical records reviewed. The patient was evaluated in room C4. A complete history and physical exam was performed. An IV lock was initiated and labs are drones above. 2323: Ordered Zofran Inj 4 mg IV, Morphine Sulfate 6 mg IV, Sodium Chloride 1000 ml @ 250 mls/hr IV, Sodium Chloride 1000 ml @ 999 mls/hr IV. The patient went for plain films of her abdomen. 0058: Ordered Morphine Sulfate 4 mg IV. She then went for CT scan of the abdomen/pelvis. 0139: I reevaluated the patient and she is resting comfortably. She states that she feels much better and is drinking more. I reviewed the CT results with her and she is going to fax the results to her providers in [place]. I discussed the treatment plan with her and she verbalized complete understanding and agreement. She is ready to go home. Medical Decision The patient is a 56 year old female who presents to the ED with abdominal pain. Differential diagnosis includes dehydration, renal failure, small bowel obstruction, PE, pneumonia, sepsis. Lab interpretation: White Blood cell count 4.1, Hemoglobin 10.6, Hematocrit 33.4. The patient's differential showed a new trick pill count of 2.77. Negative troponin, BUN 39, Creatinine 1.4, glucose 127, LFTs are normal, coags are normal. This is a 56-year-old female patient who presents with worsening abdominal pain and significantly decreased oral intake. The patient has a newly diagnosed abdominal mass with a history of lymphoma. She is being followed at the [facility] in [place]. The patient had her first round of chemotherapy. She had been doing okay until yesterday when she felt as if she could not swallow and had very little oral intake. The patient also describes worsening abdominal pain. She is currently taking 15 mg of oxycodone every 3 hours with no significant relief of her pain. Renal function is at approximately baseline. BUN was elevated consistent with acute dehydration. She received IV crystalloid therapy and was able to take clear liquids. She is feeling much better. her pain was treated with IV morphine. CT scan showed decreased size to the intra-abdominal lymph nodes but persistent 5.5 cm mass with surrounding inflammatory changes. I mentioned the liquid center to the mass and the patient states that it has always been that way. I've asked the patient to follow-up with her doctors in [place]. If symptoms worsen, she can return here to the ER. Impression Primary Impression: Dehydration Additional Impression: Abdominal mass Scribe Attestation The scribe's documentation has been prepared under my direction and personally reviewed by me in its entirety. I confirm that the note above accurately reflects all work, treatment, procedures, and medical decision making performed by me. Departure Information Dispostion Home / Self-Care Referrals Dontae Mei M.D. (PCP) Forms HOME CARE DOCUMENTATION FORM, IMPORTANT VISIT INFORMATION Patient Instructions ED Dehydration, My [facility] Additional Instructions Rest. Take plenty of clear liquids Take oxycodone every 4 hours Follow up with CT result to doctors in [place] Problem Qualifiers
[2016-10-12] MEDS ORDERED: CIPR1TAB10 PO (23:54)
[2016-10-12] MEDS ORDERED: FLUC200T4 PO (23:56)
[2016-10-13] MEDS ORDERED: PRED20TA PO (00:07)
[2016-10-13] MEDS ORDERED: OXYC1TAB3 PO (00:12)
[2016-10-13] MEDS ORDERED: PROC1TAB5 PO (00:14)
[2016-10-13] MEDS ORDERED: ACET-1311 PO (00:16)
[2016-10-13] MEDS ORDERED: PANT40TA PO (00:18)
[2016-10-13] MEDS ORDERED: ONDA4TAB46 PO (00:19)
[2016-10-13] MEDS ORDERED: MoRPHine SULFATE 4 MG/ML 1 ML CARP\\VIAL IV STA (00:58)
[2016-10-13 01:47] LABS: COMPLETE YES; EOSINOPHIL % 4.4 %; HYPERSEGMENTED POLYS 1+; LYMPH ABS # 0.48 K/uL (1.2-3.4); LYMPHOCYTE % 11.5 %; NEUTROPHILS % 66.4 %; TOXIC GRANULATION 1+; VACUOLIZATION 1+; VARIANT LYM ABS # 0.74 K/uL; VARIANT LYMPHOCYTE % 17.7 %
[2016-10-13 02:14] VITALS: BP 131/78; PULSE 68; O2SAT 97
--- NOTE | 2016-10-13 07:16 | DIAGNOSTIC IMAGING REPORT ---
CT SCAN OF THE ABDOMEN AND PELVIS WITHOUT CONTRAST CLINICAL HISTORY: Severe abdominal pain. COMPARISON STUDY: 09/24/2016 TECHNIQUE: CT scan of the abdomen and pelvis was performed from the lung bases to the proximal femurs. Images are reviewed in the axial, sagittal, and coronal planes. IV contrast was not administered for this examination. CT DOSE: 959.76 mGy.cm FINDINGS: Lower chest: There are minor basilar atelectatic changes. Liver: The unenhanced liver is normal in size, contour, and attenuation. There is no intrahepatic biliary ductal dilatation. Gallbladder: Cholelithiasis Spleen: Normal in size and attenuation. Pancreas: Unremarkable. Adrenal glands: Unremarkable. Kidneys: The [place] kidneys are markedly atrophic. There is a left iliac fossa transplant kidney. There is no hydronephrosis. Bowel: There are no transition zones indicate bowel obstruction. There is no free air. There is a focally thickened central abdominal small bowel loop. There is no evidence of acute diverticulitis. Peritoneum: There is a small amount of pelvic ascites. There is no free air. There is a complex fat-containing umbilical and supraumbilical ventral hernia. Vasculature: The abdominal aorta is normal in course and caliber. Adenopathy: There is bulky mesenteric lymphadenopathy in general slightly diminished when compared the prior study. There is however an enlarging 6 cm hypodense central mesenteric mass. There is surrounding stranding. A superimposed inflammatory lesion cannot be excluded. Pelvic viscera: The bladder, and pelvic viscera are unremarkable. Skeletal structures: 1. Cholelithiasis 2. No evidence of bowel obstruction. No evidence of free air 3. 6 cm left central mesenteric mass located between the stomach transverse colon and abutting small bowel loops. This has a hypodense center, and diagnostic considerations include a necrotic lymph node mass, or inflammatory lesion such as an abscess. There are surrounding inflammatory changes with mesenteric stranding 4. Mesenteric lymphadenopathy, decreased in size when compared the prior study 5. Thick walled central abdominal small bowel loop 6. Fat-containing ventral and umbilical hernia 7. Atrophic [place] kidneys with a left iliac fossa transplant 8. Minimal pelvic ascites IMPRESSION: Normal Study Electronically signed by: Hitesh Donohue M.D. 10/13/2016 7:15 AM Dictated Date/Time: 10/13/2016 7:05 AM
--- NOTE | 2016-10-13 07:17 | DIAGNOSTIC IMAGING REPORT ---
ABDOMEN 2 VIEWS CLINICAL HISTORY: Severe abdominal pain COMPARISON STUDY: No previous studies for comparison. FINDINGS: There is no free air. There are no transition zones indicate bowel obstruction. There are postsurgical changes present within the lumbar spine. There are left pelvic basin calcifications present. IMPRESSION: No evidence of bowel obstruction. No evidence of free air. Electronically signed by: Hitesh Donohue M.D. 10/13/2016 7:16 AM Dictated Date/Time: 10/13/2016 7:15 AM
[2016-10-30] MEDS ORDERED: ECRCR EXT (10:01)
[2016-10-30] MEDS ORDERED: MRLP17 PO (10:01)
[2016-10-30] MEDS ORDERED: DOCU-94 PO (10:01)
[2016-10-30] MEDS ORDERED: HPRIS5M SQ (10:01)
[2016-10-30] MEDS ORDERED: SNTO30 EXT (10:01)
== END 2016-10-13 02:16 | disposition home or self-care (01) ==
LOC: C.EDB 21:35 → C.EDC 10-13 02:16
DX: E86.0 Dehydration (principal); R19.00 Intra-abdominal and pelvic swelling, mass and lump, unspecified site; C85.90 Non-Hodgkin lymphoma, unspecified, unspecified site; Z94.0 Kidney transplant status; K21.9 Gastro-esophageal reflux disease without esophagitis; I10 Essential (primary) hypertension; F32.9 Major depressive disorder, single episode, unspecified; Z80.9 Family history of malignant neoplasm, unspecified; Z79.82 Long term (current) use of aspirin; Z79.52 Long term (current) use of systemic steroids; Z79.899 Other long term (current) drug therapy

== ENCOUNTER 2016-10-26 16:42 | Inpatient (IN) | payer OTHER ==
[~2016-10-26] VITALS: Ht 157.5 cm; Wt 96.1 kg
[~2016-10-26 16:42] MED LIST changes: +ACET-1311 PO; +CIPR1TAB10 PO; +FLUC200T4 PO; +ONDA4TAB46 PO; +PANT40TA PO; -PRED10TA PO; +PRED20TA PO; +PROC1TAB5 PO; -ZVRO TOP
[2016-10-26] MEDS ORDERED: SODIUM CHLORIDE 0.9% 1000ML 1,000 ML IV STA (16:59)
[2016-10-26] MEDS ORDERED: ALLO100T PO (17:15)
--- NOTE | 2016-10-26 17:27 | EMERGENCY ROOM VISIT NOTE ---
History Report prepared by Christie: Verna Alan Under the Supervision of: Dr. Jean Claude Alvares D.O. First contact with patient: 16:49 Chief Complaint: REFERRED BY DOCTOR Stated Complaint: RENAL FAILURE- PHYSICIAN REFERRED History of Present Illness The patient is a 56 year old female who presents to the Emergency Room with complaints of constant abnormal labs beginning today. The patient states that she has lymphoma and is on chemotherapy. She notes that she has had two kidney transplants with the last one done in 2005. She notes that she is on Prograf for her transplant and her doctor has been working on lowering her dose. The patient reports that her levels were checked 2 days ago and again this morning. Today she notes that she got a call from her international sales representative, Dr. Clay, who wanted her to come to the ED and be admitted for high creatinine and potassium. Creatinine baseline is 1.4 and she notes that it was 2.5 two days ago and now it is in the 3s. The patient states that she has a port and it has been in for just over 1 month. She complains of eating and drinking less, abdominal pain that is not new, and a runny nose that she thinks is from chemotherapy. She denies any nausea, vomiting, diarrhea, cough, fever, chest pain, shortness of breath, back pain. The patient notes that her last bowel movement was right before she came here and she reports that she has an old skin tear and bruise on the left leg. Source of History: patient Onset: today Position: other (global) Quality: other (high potassium and creatinine) Timing: constant Associated Symptoms: + abdominal pain, No SOB, No back pain, No chest pain, No cough, No diarrhea, No fevers, No nausea, No vomiting Note: She complains of eating and drinking less and a runny nose that she thinks is from chemotherapy. Review of Systems See HPI for pertinent positives & negatives. A total of 10 systems reviewed and were otherwise negative. Past Medical & Surgical Medical Problems: (1) CHAGO (acute kidney injury) (2) Depression (3) Dermoid cyst of ovary (4) GERD (gastroesophageal reflux disease) (5) HTN (hypertension) (6) Lymphoma (7) Osteopenia (8) PTLD (post-transplant lymphoproliferative disorder) Surgical Problems: (1) H/O tubal ligation (2) History of appendectomy (3) Renal transplant, status post (4) retina detachment repair (5) S/P lumbar fusion (6) S/P GENE-BSO Family History FH: breast cancer SISTER FH: lymphoma FATHER ( at age 72) Social History Smoking Status: Never Smoker Marital Status: Occupation Status: disabled Current/Historical Medications Scheduled Allopurinol (Zyloprim), 200 MG PO QAM Ascorbic Acid (Vitamin C), 500 MG PO QAM Aspirin (Aspirin EC Low Dose), 81 MG PO QAM Calcium Carbonate-Cholecalcife (Caltrate 600+D), 1 TAB PO QAM Cholecalciferol (Vitamin D3), 1,000 UNITS PO QAM Ciprofloxacin Hcl (Cipro), 500 MG PO QAM Estrogens, Conjugated (Premarin), 0.625 MG PO QAM Fluconazole (Diflucan), 200 MG PO DAILY Fluticasone Propionate (Nasal) (Flonase Allergy Relief), 2 SPRAYS NA DAILY Metoprolol Succ (Toprol Xl) (Toprol-Xl), 50 MG PO QAM Omeprazole (Prilosec), 20 MG PO BID Polysaccharide Iron Complex (Ferrex 150), 150 MG PO BID Prednisone (Prednisone), 10 MG PO DAILY Tacrolimus (Prograf), 1 MG PO BID Scheduled PRN Docusate Sodium (Colace), 100 MG PO BID PRN for Constipation Furosemide (Lasix), 20 MG PO DAILY PRN for edema Lorazepam (Ativan), 0.5 MG PO BID PRN for Anxiety Ondansetron Hcl (Zofran), 8 MG PO Q8 PRN for Nausea Oxycodone Ir (Roxicodone Ir), 7.5 MG PO Q4H PRN for Pain Prochlorperazine Maleate (Compazine), 10 MG PO Q6H PRN for Nausea or Vomiting Allergies Coded Allergies: No Known Allergies (Unverified , 10/26/16) Physical Exam Vital Signs Date Time Temp Pulse Resp B/P Pulse Ox O2 Delivery O2 Flow Rate FiO2 10/26/16 18:04 79 10/26/16 16:47 36.8 83 18 145/87 98 Room Air Physical Exam GENERAL: sitting up on the edge of the bed, alert, well appearing, well nourished, no distress, non-toxic EYE EXAM: normal conjunctiva, PERRL and EOM's intact OROPHARYNX: no exudate, no erythema, lips, buccal mucosa, and tongue normal and mucous membranes are dry NECK: supple, no nuchal rigidity, no adenopathy, non-tender LUNGS: Clear to auscultation. Normal chest wall mechanics HEART: no murmurs, S1 normal and S2 normal CHEST: Port located along right chest wall, no erythema or induration ABDOMEN: abdomen soft, non-tender, normo-active bowel sounds, no masses, no rebound or guarding. Multiple old abdominal incisions. BACK: Back is symmetrical on inspection and there is no deformity, no midline tenderness, no CVA tenderness. SKIN: no rashes and no bruising UPPER EXTREMITIES: upper extremities are grossly normal. LOWER EXTREMITIES: Mild pitting edema bilaterally. NEURO EXAM: Normal sensorium, cranial nerves II-XII grossly intact, normal speech, no gross weakness of arms, no gross weakness of legs. Medical Decision & Procedures Laboratory Results 10/26/16 17:20 Red Blood Count 3.57, Mean Corpuscular Volume 80.1, Mean Corpuscular Hemoglobin 25.5, Mean Corpuscular Hemoglobin Concent 31.8, Mean Platelet Volume 11.3 10/26/16 17:20 Test 10/26/16 17:20 10/26/16 17:37 White Blood Count 18.11 K/uL (4.8-10.8) Red Blood Count 3.57 M/uL (4.2-5.4) Hemoglobin 9.1 g/dL (12.0-16.0) Hematocrit 28.6 % (37-47) Mean Corpuscular Volume 80.1 fL (80-100) Mean Corpuscular Hemoglobin 25.5 pg (25-34) Mean Corpuscular Hemoglobin Concent 31.8 g/dl (32-36) Platelet Count 461 K/uL (130-400) Mean Platelet Volume 11.3 fL (7.4-10.4) RDW Standard Deviation 50.5 fL (36.4-46.3) RDW Coefficient of Variation 17.5 % (11.5-14.5) Neutrophils % (Manual) 80.0 % Lymphocytes % (Manual) 12.2 % Monocytes % (Manual) 6.1 % Metamyelocytes % 1.7 % Neutrophils # (Manual) 14.49 K/uL (1.4-6.5) Total Absolute Neutrophils 14.49 K/uL (1.4-6.5) Lymphocytes # (Manual) 2.21 K/uL (1.2-3.4) Total Absolute Lymphocytes 2.21 K/uL (1.2-3.4) Monocytes # (Manual) 1.10 K/uL (0.11-0.59) Metamyelocytes # 0.31 K/uL (0-0) Toxic Granulation 1+ Anisocytosis PRESENT Prothrombin Time 11.5 SECONDS (9.0-12.0) Prothromb Time International Ratio 1.1 (0.9-1.1) Estimated GFR () 17.1 Estimated GFR (Non- 14.8 BUN/Creatinine Ratio 11.7 (10-20) Calcium Level 8.7 mg/dl (8.5-10.1) Total Bilirubin 0.8 mg/dl (0.2-1) Direct Bilirubin 0.5 mg/dl (0-0.2) Aspartate Amino Transf (AST/SGOT) 14 U/L (15-37) Alanine Aminotransferase (ALT/SGPT) 18 U/L (12-78) Alkaline Phosphatase 146 U/L (45-117) Total Protein 6.5 gm/dl (6.4-8.2) Albumin 2.3 gm/dl (3.4-5.0) Lipase 82 U/L (73-393) Hepatitis C Antibody Screen NEG (NEG) Bedside Hemoglobin 9.2 g/dl (12.0-16.0) Bedside Hematocrit 27 % (37-47) Bedside Sodium 133 mEq/L (135-144) Bedside Potassium 4.6 mEq/L (3.3-5.0) Bedside Chloride 101 mEq/L (101-112) Bedside Total CO2 22 mEq/l (24-31) Anion Gap 16.0 mmol/L (16-25) Bedside Blood Urea Nitrogen 35 mg/dl (7-18) Bedside Creatinine 3.5 mg/dl (0.6-1.3) Bedside Glucose (other) 146 mg/dl (70-99) Bedside Ionized Calcium (Jong) 1.22 mmol/l (1.12-1.32) Laboratory results per my review. Medications Administered Medications (Trade) Dose Ordered Sig/Cherry Route Start Time Stop Time Status Last Admin Dose Admin Sodium Chloride (Nss 1000ml) 1,000 ml @ 999 mls/hr Q1H1M STAT IV 10/26/16 16:59 10/26/16 17:59 DC 10/26/16 17:47 999 MLS/HR ECG Indication: other (labs) Rate (beats per minute): 81 Rhythm: sinus rhythm Findings: left axis deviation, no ectopy ED Course ED COURSE: Vital signs were reviewed and normal The patients medical record was reviewed The above diagnostic studies were performed and reviewed. ED treatments and interventions as stated above. 165: The patient was evaluated in room A3. A complete history and physical examination was performed. 1659: Sodium Chloride 1000 ml @ 999 mls/hr IV. 1702: Patient had 3.2 creatinine today and 6.1 potassium. 1733: Nurses obtained blood work from the patient. 175: I reviewed the patient's case with Dr. Francesca Aguilera. She will evaluate the patient for further management. 180: Upon reevaluation, the patient is hemodynamically stable. I discussed my findings with the patient and she understands and agrees with the treatment plan. Based on the patients age, coexisting illnesses, exam and lab findings the decision to treat as an inpatient was made. The patient remained stable while under my care. The patient will be evaluated for further management. Medical Decision Differential diagnoses includes but is not limited to gastritis, peptic ulcer disease, GERD, gallbladder disease, pancreatitis, small bowel obstruction, acute coronary syndrome, pericarditis, ischemic bowel, irritable bowel disease, irritable bowel syndrome, appendicitis, diverticulitis, malignancy, hernia, urinary tract infection, torsion, /ectopic , perforation, trauma, infectious. Patient is a 56-year-old female who presents the ER with a past medical history of renal transplant on tacrolimus who is followed with Dr. Clay for nephrology. Blood work was checked today and she was referred in by her PCP. Chemotherapy was done 3 weeks ago and that was the first dose. Blood work today showed a creatinine of 3.2 up from a baseline of 1.4. Potassium was elevated at 6.1. Upon presentation port was accessed and i-STAT and EKG were immediately ordered. She has no new complaints otherwise. She has a leukocytosis of 18,000. Creatinine was 3.3 and potassium was 4.5. EKG was unremarkable. UA was contaminated. Tacrolimus is pending. Patient was given a bolus normal saline and admitted to internal medicine with CHAGO with a renal transplant. Consults Time Called: 174 Consulting Physician: Dr. Francesca Hernandez Returned Call: [phone] I reviewed the patient's case with Dr. Francesca Aguilera. She will evaluate the patient for further management. Impression Primary Impression: Acute kidney injury Additional Impressions: Leukocytosis Chronic anemia Scribe Attestation The scribe's documentation has been prepared under my direction and personally reviewed by me in its entirety. I confirm that the note above accurately reflects all work, treatment, procedures, and medical decision making performed by me. Departure Information Dispostion Being Evaluated By Hospitalist Dontae Gotti M.D. (PCP) Patient Instructions My [facility] Problem Qualifiers Additional Impressions: Leukocytosis Leukocytosis type: unspecified Qualified Codes: D72.829 - Elevated white blood cell count, unspecified
[2016-10-26 17:47] LABS: HEMATOCRIT 28.6 % (37-47); MEAN CELL VOLUME 80.1 fL (80-100); MEAN CORPUSCULAR HEMOGLOBIN 25.5 pg (25-34); MEAN CORPUSCULAR HGB CONC 31.8 g/dl (32-36); MEAN PLATELET VOLUME 11.3 fL (7.4-10.4); PLATELET COUNT 461 K/uL (130-400); RED BLOOD COUNT 3.57 M/uL (4.2-5.4); WHITE BLOOD COUNT 18.11 K/uL (4.8-10.8)
[2016-10-26 17:54] LABS: ISTAT CREATININE 3.5 mg/dl (0.6-1.3); ISTAT HEMOGLOBIN 9.2 g/dl (12.0-16.0); ISTAT IONIZED CALCIUM 1.22 mmol/l (1.12-1.32)
[2016-10-26 18:02] LABS: ALT/SGPT 18 U/L (12-78); BLOOD UREA NITROGEN 39 mg/dl (7-18); BUN/CREATININE RATIO 11.7 (10-20); CALCIUM 8.7 mg/dl (8.5-10.1); CARBON DIOXIDE 23 mmol/L (21-32); CHLORIDE 102 mmol/L (98-107); GLUCOSE 147 mg/dl (70-99); POTASSIUM 4.5 mmol/L (3.5-5.1); SODIUM 134 mmol/L (136-145)
[2016-10-26 18:05] LABS: ALKALINE PHOSPHATASE 146 U/L (45-117); AST/SGOT 14 U/L (15-37)
[2016-10-26 18:21] LABS: ANISOCYTOSIS PRESENT; COMPLETE YES; LYMPH ABS # 2.21 K/uL (1.2-3.4); LYMPHOCYTE % 12.2 %; META ABS # 0.31 K/uL (0-0); METAMYELOCYTE % 1.7 %; TOXIC GRANULATION 1+
[2016-10-26] MEDS ORDERED: ACETAMINOPHEN 325 MG TAB PO PRN (18:45)
[2016-10-26] MEDS ORDERED: ONDANSETRON 4 MG TAB PO PRN (19:00)
[2016-10-26] MEDS ORDERED: PROCHLORPERAZINE MALEATE 10 MG TAB PO PRN (19:00)
[2016-10-26] MEDS ORDERED: LORAZEPAM 0.5 MG TAB PO PRN (19:00)
[2016-10-26 20:01] VITALS: BP 149/82; PULSE 98; TEMP 36.7; O2SAT 97; Ht 157.5 cm; Wt 96.1 kg
[2016-10-26 20:33] LABS: INR 1.1 (0.9-1.1); PROTHROMBIN TIME (PATIENT) 11.5 SECONDS (9.0-12.0)
[2016-10-26] MEDS: DOCUSATE SODIUM 100 MG CAP PO PRN (21:06)
[2016-10-26] MEDS: IRON COMPLEX POLYSACCHARIDE W/VIT C 150 MG CAP PO SCH (21:07)
[2016-10-26] MEDS: CALCIUM 600MG + VIT D 400 IU TAB PO SCH (21:07)
[2016-10-26] MEDS: TACROLIMUS 1 MG CAP PO SCH (21:07)
[2016-10-26] MEDS: PANTOprazole SOD 40 MG TAB PO SCH (21:07)
[2016-10-26] MEDS: OXYCODONE HCL IR 5 MG TAB (IMMEDIATE RELEASE) PO PRN (21:11)
[2016-10-26] MEDS: SODIUM CHLORIDE 0.9% 1000ML 1,000 ML IV SCH (21:16)
[2016-10-26] MEDS: HEPARIN SOD 5000 UNIT/0.5 ML CARP SQ SCH (21:19)
--- NOTE | 2016-10-26 21:24 | DIAGNOSTIC IMAGING REPORT ---
EXAMINATION: RENAL ULTRASOUND CLINICAL HISTORY: Acute renal failure. Renal transplant patient COMPARISON STUDY: CT scan dated 10/13/2016 FINDINGS: The big sandy right kidney is echogenic and measures 51 mm in diameter. The big sandy left kidney is echogenic and measures 65 mm in diameter. There is a left lower quadrant transplant kidney. The transplant kidney measures 10.7 x 5.3 x 3.9 cm. There are no perinephric fluid collections. There is no hydronephrosis. The renal artery and vein appear patent. . The bladder was not well-distended. No ureteral jets were visualized. IMPRESSION : 1. Atrophic echogenic big sandy kidneys 2. Left lower quadrant transplant kidney. No hydronephrosis. No perinephric fluid collections. Patent renal artery and vein. Electronically signed by: Hitesh Donohue M.D. 10/26/2016 9:22 PM Dictated Date/Time: 10/26/2016 7:47 PM
[2016-10-26 22:02] LABS: PREG INTERNAL NEGATIVE QC NEG CLEAR BACKGROUND; PREG INTERNAL POSITIVE QC POS CONTROL LINE
[2016-10-26 22:16] LABS: URINE APPEARANCE CLOUDY (CLEAR); URINE COLOR DK YELLOW; URINE EPITHELIAL CELL AUTO >30 /lpf (0-5); URINE NITRITE NEG (NEG); URINE SPECIFIC GRAVITY 1.021 (1.000-1.030); UROBILINOGEN NEG (NEG)
[2016-10-26 22:19] LABS: ZZUR CULT IF INDIC CLEAN CATCH YES
[2016-10-26 22:37] LABS: URINE BILIRUBIN NEG (NEG)
[2016-10-26 22:38] LABS: MANUAL MICROSCOPIC REQUIRED? NO; REVIEW REQ? YES
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
[2016-10-26 23:46] VITALS: BP 115/75; PULSE 88; TEMP 37.2; O2SAT 94
[2016-10-27 03:52] VITALS: BP 136/82; PULSE 87; TEMP 37.1; O2SAT 96
[2016-10-27] MEDS: OXYCODONE HCL IR 5 MG TAB (IMMEDIATE RELEASE) PO PRN ×3 (04:54→21:13)
[2016-10-27 05:37] LABS: HEMATOCRIT 27.4 % (37-47); MEAN CELL VOLUME 81.3 fL (80-100); MEAN CORPUSCULAR HEMOGLOBIN 25.5 pg (25-34); MEAN CORPUSCULAR HGB CONC 31.4 g/dl (32-36); MEAN PLATELET VOLUME 11.2 fL (7.4-10.4); PLATELET COUNT 444 K/uL (130-400); RED BLOOD COUNT 3.37 M/uL (4.2-5.4); WHITE BLOOD COUNT 16.45 K/uL (4.8-10.8)
[2016-10-27 06:08] LABS: BUN/CREATININE RATIO 10.5 (10-20); CALCIUM 8.6 mg/dl (8.5-10.1); CREATININE 3.2 mg/dl (0.60-1.20); POTASSIUM 4.6 mmol/L (3.5-5.1)
[2016-10-27] MEDS: SODIUM CHLORIDE 0.9% 1000ML 1,000 ML IV SCH (06:12)
[2016-10-27] MEDS: HEPARIN SOD 5000 UNIT/0.5 ML CARP SQ SCH ×3 (06:15→22:00)
[2016-10-27 07:43] VITALS: BP 133/83; PULSE 96; TEMP 37.1; O2SAT 95
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
[2016-10-27] MEDS ORDERED: FLUCONAZOLE 100 MG TAB PO SCH (09:00)
--- NOTE | 2016-10-27 09:18 | NEPHROLOGY CONSULTATION ---
DATE OF CONSULTATION: 10/27/2016 ATTENDING OF RECORD: Dr. Aguilera. REASON FOR CONSULTATION: CHAGO. HISTORY OF PRESENT ILLNESS: This is a 56-year-old female with history of renal transplants in the past, who is on Prograf as well as prednisone. The patient was diagnosed with post-transplant lymphoproliferative disease in August of this year and received her first dose of chemo at [facility], which was CHOP-R on October 06. The patient became ill from the chemo with worsening kidney function and extreme weakness. Creatinine worsened. Prograf levels also worsened. The patient became neutropenic, requiring a dose of Neupogen. The patient was getting IV fluids daily from Sunday, and Sunday. Creatinine eventually peaked, then started to trend down, was down to 2.9 on Sunday and she was feeling much better. No fluids were given on that day. We decided to repeat lab work on in hopes that the kidney function was normalized for tentative plans of repeat chemo again on Sunday. The patient's Prograf levels were elevated and we reduced the Prograf from 4 mg b.i.d. to 3 mg b.i.d. On repeat, levels were still elevated, so we reduced the dose to 1 b.i.d. The patient developed tremors from the Prograf toxicity. The patient had a repeat lab work done on that showed a potassium level of 6.1 and a creatinine up to 3.5; previous baseline of 1.8. She was brought in to the Emergency Room for further triage and evaluation. The patient underwent a renal transplant ultrasound, which showed atrophic echogenic need of kidneys as well as a left lower quadrant transplanted kidney with no hydronephrosis, no perinephric fluid collections and a patent renal artery and vein. The patient's urine showed a pH of 5, specific gravity of 1.021, 1+ protein, trace ketones, trace leukocyte esterase, greater than 30 epis, 1-5 WBCs and 0-4 RBCs. Creatinine was 3.3 on admission and down to 3.2 this morning. The patient's main complaint is fatigue, decreased appetite and decreased urination. She denies any NSAIDs. The patient on Sunday looks much more energetic and felt much better. Currently, now is looking more tired again. PAST MEDICAL HISTORY: Post-transplant lymphoproliferative disorder, hypertension, CKD stage 3 with baseline creatinine of around 1.8 and osteopenia. PAST SURGICAL HISTORY: Two renal transplants, one in 1990 and one in 2005 with a history of MPGN; appendectomy; tubal ligation; total abdominal hysterectomy/BSO and lumbar fusion. FAMILY HISTORY: Significant for lymphoma in father, who at age 72 as well as breast cancer in sister. SOCIAL HISTORY: No smoking, no alcohol, and no drugs. Lives independently. CURRENT MEDICATIONS: MiraLax 17 grams daily, allopurinol 200 mg daily, vitamin C 500 mg daily, vitamin D 1000 units daily, Cipro 500 mg once a day, Premarin 0.625 mg daily, Flonase, Toprol-XL 50 mg daily, prednisone 10 mg daily, heparin 5000 units subQ q. 8, iron 150 mg p.o. b.i.d., Prograf 1 mg p.o. b.i.d., Caltrate 1 tab p.o. b.i.d., Protonix 40 mg p.o. b.i.d. and normal saline at 100 mL an hour. REVIEW OF SYSTEMS: She does have intermittent chills. No fevers. No significant weight loss. No nausea or vomiting. No diarrhea or constipation. No chest pain or shortness of breath. Positive decreased urination. Positive abdominal pain. No rash or itching. Positive fatigue. Positive anorexia. All other review of systems is otherwise negative. PHYSICAL EXAMINATION: VITAL SIGNS: Temperature 37.1, pulse 87, respiratory rate is 20, blood pressure 136/82 and satting 96% on room air. GENERAL: Awake, alert and oriented x3. EYES: No scleral icterus. ENT: Moist mucous membranes. NECK: Supple. PULMONARY: Clear to auscultation. CARDIAC: Regular rate and rhythm. ABDOMEN: Bowel sounds are positive, soft, nontender and nondistended. EXTREMITIES: No clubbing, cyanosis or edema. She does have a small open sore on the left leg. NEUROLOGIC: Nonfocal. DERMATOLOGIC: No rash noted. LABORATORIES: Sodium was 137, potassium 4.6, chloride is 106, bicarbonate is 24, BUN is 34, creatinine is 3.2, glucose 105, and calcium is 8.6. White count is 16,000, H\T\H 8.6 and 27.4, and platelet count is 444. INR is 1.1. Prograf level is pending, however likely to be inaccurate since it was not 12 hours since the previous dose. Hep C negative. Urine culture is pending. ASSESSMENT AND PLAN: A renal transplant patient. Goal Prograf level is 3-5. The patient's Prograf levels were quite elevated in the 20s, while having worsening kidney function and volume depletion after chemotherapy. The patient was started on fluconazole prophylactically, which may have raised the Prograf levels. I have significantly reduced the Prograf from 4 b.i.d. to 3 b.i.d., now to 1 b.i.d. and I have stopped the fluconazole. We will go ahead and recheck the Prograf levels, but we will try to get a 12-hour trough. It does not appear that there is an obstruction to the transplant. Urinalysis looks bland. I feel this is likely significant acute tubular necrosis in the setting of volume depletion and Prograf toxicity. We will check a random urine sodium to be thorough. If creatinine does not improve, we will consider a transfer her to [facility] for a transplant biopsy. I have reduced the Cipro, which is a prophylactic antibiotic to renal dosing and I have stopped fluconazole. Currently, receiving IV fluids and tolerating it well. Will hold the prograf over the weekend and repeat levels on sunday. will restart prograf 1 bid on sunday off the fluconazole and follow levels again. Hopeful, in the next several days that the creatinine will start to improve back to hopefully baseline of 1.8 and the patient could resume her chemotherapy. We will contact [facility]. I appreciate the consultation. ANA
[2016-10-27] MEDS: IRON COMPLEX POLYSACCHARIDE W/VIT C 150 MG CAP PO SCH ×2 (09:23→20:30)
[2016-10-27] MEDS: PANTOprazole SOD 40 MG TAB PO SCH ×2 (09:23→20:30)
[2016-10-27] MEDS: TACROLIMUS 1 MG CAP PO SCH (09:23)
[2016-10-27] MEDS: METOPROLOL SUCC 50MG EXT REL TAB PO SCH (09:24)
[2016-10-27] MEDS: CALCIUM 600MG + VIT D 400 IU TAB PO SCH ×2 (09:24→20:30)
[2016-10-27] MEDS: CIPROFLOXACIN 500 MG TAB PO SCH (09:24)
[2016-10-27] MEDS: ASCORBIC ACID 500 MG TAB PO SCH (09:24)
[2016-10-27] MEDS: ESTROGENS, CONJUGATED 0.625 MG TAB PO SCH (09:24)
[2016-10-27] MEDS: DOCUSATE SODIUM 100 MG CAP PO PRN (09:24)
[2016-10-27] MEDS: ALLOPURINOL 100 MG TAB PO SCH (09:25)
[2016-10-27] MEDS: CHOLECALCIFEROL 1000 INTER.UNIT TAB PO SCH (09:25)
[2016-10-27] MEDS: POLYETHYLENE (MIRALAX) 17 GM PACK PO SCH (09:25)
[2016-10-27] MEDS: FLUTICASONE PROPIONATE NA SPR 16 GM BTL SCH (09:25)
[2016-10-27 11:12] VITALS: BP 125/82; PULSE 81; TEMP 36.7; O2SAT 97
[2016-10-27] MEDS ORDERED: NURSING DECISION MEDICATION ORDER SCH (11:45)
[2016-10-27] MEDS ORDERED: EUCERIN CR 120 GM JAR EXT PRN (12:30)
[2016-10-27] MEDS: COLLAGENASE OINT 30 GM TUBE EXT SCH (12:57)
[2016-10-27 15:39] VITALS: BP 121/74; PULSE 65; TEMP 36.6; O2SAT 95
--- NOTE | 2016-10-27 17:59 | Progress Note ---
Medicine Progress Note Date & Time of Visit: Oct 27, 2016 at 17:51. Subjective Patient seen and examined. Asking to have ears flushed due to buildup of ear wax. Objective Last 8 Hrs Date Time Temp Pulse Resp B/P Pulse Ox O2 Delivery O2 Flow Rate FiO2 10/27/16 15:39 36.6 65 20 121/74 95 Room Air 10/27/16 12:00 Room Air 10/27/16 11:12 36.7 81 20 125/82 97 Room Air Physical Exam: General-awake; alert; NAD Eyes-EOMI; no scleral icterus Ears-cerumen in left ear canal Neck-no stridor; trachea midline Lungs-CTA bilaterally; no wheezes/crackles Heart-RRR; no m/r/g Abdomen-soft; NTND; nBS Extremities-1+ edema bilateral LE; no deformity Neuro-no focal deficits Laboratory Results: Last 24 Hours Test 10/26/16 21:30 10/27/16 05:00 10/27/16 09:16 10/27/16 11:19 Urine Color DK YELLOW Urine Appearance CLOUDY Urine pH 5.0 Urine Specific [place] 1.021 Urine Protein 1+ Urine Glucose (UA) NEG Urine Ketones TRACE Urine Occult Blood NEG Urine Nitrite NEG Urine Bilirubin NEG Urine Urobilinogen NEG Urine Leukocyte Esterase TRACE Urine WBC (Auto) 1-5 /hpf Urine RBC (Auto) 0-4 /hpf Urine Hyaline Casts (Auto) 1-5 /lpf Urine Epithelial Cells (Auto) >30 /lpf Urine Bacteria (Auto) 2+ Urine Pathogenic Casts /lpf Urine Test NEG White Blood Count 16.45 K/uL Red Blood Count 3.37 M/uL Hemoglobin 8.6 g/dL Hematocrit 27.4 % Mean Corpuscular Volume 81.3 fL Mean Corpuscular Hemoglobin 25.5 pg Mean Corpuscular Hemoglobin Concent 31.4 g/dl RDW Standard Deviation 52.2 fL RDW Coefficient of Variation 17.6 % Platelet Count 444 K/uL Mean Platelet Volume 11.2 fL Sodium Level 137 mmol/L Potassium Level 4.6 mmol/L Chloride Level 106 mmol/L Carbon Dioxide Level 24 mmol/L Anion Gap 7.0 mmol/L Blood Urea Nitrogen 34 mg/dl Creatinine 3.20 mg/dl Est Creatinine Clear Calc Drug Dose 20.7 ml/min Estimated GFR () 17.7 Estimated GFR (Non- 15.3 BUN/Creatinine Ratio 10.5 Random Glucose 105 mg/dl Calcium Level 8.6 mg/dl Urine Random Sodium 71 mEq/L Date/Time Source Procedure Growth Status 10/26/16 21:30 Urine , Clean Catch Urine Culture - Preliminary PIN-POINT GROWTH PRESENT, REINCUBATING. Resulted Assessment & Plan CHAGO - likely ATN in the setting of tacrolimus toxicity - renal ultrasound unremarkable - Nephrology consulted - hold tacrolimus - continue IVF's h/o Renal transplant - continue prednisone and ciprofloxacin - hold tacrolimus as noted above - hold fluconazole (given interaction with tacrolimus) - Nephrology discussed case with transplant team HTN - continue metoprolol - hold Lasix in the setting of CHAGO PTLD - on CHOP-R through [facility] - they are aware of patient's hospitalization and chemotherapy temporarily on hold - continue allopurinol Open wound of LLE - Wound care consulted - continue collagenase DVT prophylaxis with heparin sq Consultants: Nephrology Procedures: Renal ultrasound 1. Atrophic echogenic [place] kidneys 2. Left lower quadrant transplant kidney. No hydronephrosis. No perinephric fluid collections. Patent renal artery and vein. Current Inpatient Medications: Current Inpatient Medications Medications (Trade) Dose Ordered Sig/Cherry Route Start Time Stop Time Status Last Admin Dose Admin Heparin Sodium (Porcine) (Heparin Sq 5000 Unit/0.5ml) 5,000 unit Q8 SQ 10/26/16 22:00 11/25/16 21:59 10/27/16 13:56 5,000 UNIT Acetaminophen (Tylenol Tab) 650 mg Q4H PRN PO 10/26/16 18:45 11/25/16 18:44 Polyethylene (Miralax Powder Packet) 17 gm DAILY PO 10/27/16 09:00 11/26/16 08:59 10/27/16 09:25 17 GM Allopurinol (Zyloprim Tab) 200 mg QAM PO 10/27/16 09:00 11/26/16 08:59 10/27/16 09:25 200 MG Ascorbic Acid (Vitamin C Tab) 500 mg QAM PO 10/27/16 09:00 11/26/16 08:59 10/27/16 09:24 500 MG Cholecalciferol (Vitamin D Tab) 1,000 inter.unit QAM PO 10/27/16 09:00 11/26/16 08:59 10/27/16 09:25 1,000 INTER.UNIT Ciprofloxacin (Cipro Tab) 500 mg QAM PO 10/27/16 09:00 11/26/16 08:59 10/27/16 09:24 500 MG Docusate Sodium (coLACE CAP) 100 mg BID PRN PO 10/26/16 19:00 11/25/16 18:59 10/27/16 09:24 100 MG Estrogens Conjugated (Premarin Tab) 0.625 mg QAM PO 10/27/16 09:00 11/26/16 08:59 10/27/16 09:24 0.625 MG Fluticasone Propionate (Flonase Nasal [place]) 2 sprays DAILY NA 10/27/16 09:00 11/26/16 08:59 10/27/16 09:25 2 SPRAYS Lorazepam (Ativan Tab) 0.5 mg BID PRN PO 10/26/16 19:00 11/25/16 18:59 Metoprolol Succinate (Toprol Xl Tab) 50 mg QAM PO 10/27/16 09:00 11/26/16 08:59 10/27/16 09:24 50 MG Ondansetron HCl (Zofran Tab) 8 mg Q8 PRN PO 10/26/16 19:00 11/25/16 18:59 Oxycodone HCl (Roxicodone Immediate Rel Tab) 7.5 mg Q4H PRN PO 10/26/16 19:00 11/09/16 18:59 10/27/16 12:45 7.5 MG Polysaccharide Iron Complex (Niferex-150 w/ Vit C Cap) 150 mg BID PO 10/26/16 21:00 11/25/16 20:59 10/27/16 09:23 150 MG Prednisone (PredniSONE TAB) 10 mg DAILY PO 10/27/16 09:00 11/26/16 08:59 10/27/16 09:24 10 MG Prochlorperazine Maleate (Compazine Tab) 10 mg Q6H PRN PO 10/26/16 19:00 11/25/16 18:59 Calcium/Vitamin D (Caltrate Plus Tab) 1 tab BID PO 10/26/16 21:00 11/25/16 20:59 10/27/16 09:24 1 TAB Pantoprazole Sodium (Protonix Tab) 40 mg BID PO 10/26/16 21:00 11/25/16 20:59 10/27/16 09:23 40 MG Heparin Sodium (Porcine) (Heparin 100 Unit/ml 5ml Flush) 5 ml PRN PRN IV 10/27/16 00:15 11/26/16 00:14 Collagenase (Santyl Oint) 1 appln DAILY EXT 10/27/16 11:45 11/26/16 11:44 10/27/16 12:57 1 APPLN Multi-Ingredient Ointment (Eucerin Unscented Cr) 1 appln PRN PRN EXT 10/27/16 12:30 11/26/16 12:29 10/27/16 12:46 1 APPLN
[2016-10-27 19:32] VITALS: BP 148/92; PULSE 65; TEMP 36.3; O2SAT 97
[2016-10-27] MEDS ORDERED: ONDANSETRON 4MG OD TAB ONE (21:00)
[2016-10-27 23:56] VITALS: BP 144/84; PULSE 77; TEMP 36.5; O2SAT 96
[2016-10-28] VITALS (7 sets, daily range): BP systolic 120–161; BP diastolic 76–97; PULSE 65–74; TEMP 36.3–36.8; O2SAT 94–97
[2016-10-28 05:52] LABS: HEMATOCRIT 25.8 % (37-47); MEAN CELL VOLUME 81.4 fL (80-100); MEAN CORPUSCULAR HEMOGLOBIN 25.9 pg (25-34); MEAN CORPUSCULAR HGB CONC 31.8 g/dl (32-36); MEAN PLATELET VOLUME 11.5 fL (7.4-10.4); PLATELET COUNT 469 K/uL (130-400); RED BLOOD COUNT 3.17 M/uL (4.2-5.4)
[2016-10-28] MEDS: HEPARIN SOD 5000 UNIT/0.5 ML CARP SQ SCH ×3 (06:00→22:00)
[2016-10-28 06:31] LABS: BUN/CREATININE RATIO 11.5 (10-20); CALCIUM 8.8 mg/dl (8.5-10.1); CREATININE 2.9 mg/dl (0.60-1.20); POTASSIUM 4.9 mmol/L (3.5-5.1)
[2016-10-28] MEDS: FLUTICASONE PROPIONATE NA SPR 16 GM BTL SCH (08:29)
[2016-10-28] MEDS: PANTOprazole SOD 40 MG TAB PO SCH ×2 (08:30→20:14)
[2016-10-28] MEDS: IRON COMPLEX POLYSACCHARIDE W/VIT C 150 MG CAP PO SCH ×2 (08:30→20:13)
[2016-10-28] MEDS: ASCORBIC ACID 500 MG TAB PO SCH (08:30)
[2016-10-28] MEDS: CALCIUM 600MG + VIT D 400 IU TAB PO SCH ×2 (08:30→20:12)
[2016-10-28] MEDS: CIPROFLOXACIN 500 MG TAB PO SCH (08:30)
[2016-10-28] MEDS: ALLOPURINOL 100 MG TAB PO SCH (08:31)
[2016-10-28] MEDS: METOPROLOL SUCC 50MG EXT REL TAB PO SCH (08:31)
[2016-10-28] MEDS: CHOLECALCIFEROL 1000 INTER.UNIT TAB PO SCH (08:31)
[2016-10-28] MEDS: ESTROGENS, CONJUGATED 0.625 MG TAB PO SCH (08:31)
[2016-10-28] MEDS: POLYETHYLENE (MIRALAX) 17 GM PACK PO SCH (09:00)
[2016-10-28] MEDS: COLLAGENASE OINT 30 GM TUBE EXT SCH (09:00)
[2016-10-28] MEDS ORDERED: GI COCKTAIL PO ONE (13:00)
[2016-10-28] MEDS ORDERED: ALUMINUM/MAGNESIUM SUSP 18 ML, LIDOCAINE HCL 2% VISCOUS SOLN 6 ML, BARCODE IDENTIFIER 1 EA PO ONE ×2 (13:30)
[2016-10-28] MEDS: SODIUM CHLORIDE 0.9% 1000ML 1,000 ML IV SCH ×2 (13:49→22:21)
--- NOTE | 2016-10-28 14:47 | Progress Note ---
Medicine Progress Note Date & Time of Visit: Oct 28, 2016 at 14:43. Subjective Patient seen and examined. Notes belching and acid taste in mouth. Decreased appetite as well. Hearing improved. Objective Last 8 Hrs Date Time Temp Pulse Resp B/P Pulse Ox O2 Delivery O2 Flow Rate FiO2 10/28/16 12:00 36.3 67 18 136/85 97 Room Air 10/28/16 10:00 95 Room Air 10/28/16 10:00 36.8 74 18 144/88 95 Room Air 10/28/16 09:30 36.8 74 18 95 10/28/16 08:00 Room Air 10/28/16 07:53 36.6 66 19 126/78 94 Room Air Physical Exam: General-awake; alert; NAD Eyes-EOMI; no scleral icterus Neck-no stridor; trachea midline Lungs-CTA bilaterally; no wheezes/crackles Heart-RRR; no m/r/g Abdomen-soft; NTND; nBS Extremities-1+ edema bilateral LE; no deformity Neuro-no focal deficits Laboratory Results: Last 24 Hours Test 10/28/16 04:55 White Blood Count 11.00 K/uL Red Blood Count 3.17 M/uL Hemoglobin 8.2 g/dL Hematocrit 25.8 % Mean Corpuscular Volume 81.4 fL Mean Corpuscular Hemoglobin 25.9 pg Mean Corpuscular Hemoglobin Concent 31.8 g/dl RDW Standard Deviation 51.4 fL RDW Coefficient of Variation 17.2 % Platelet Count 469 K/uL Mean Platelet Volume 11.5 fL Sodium Level 138 mmol/L Potassium Level 4.9 mmol/L Chloride Level 107 mmol/L Carbon Dioxide Level 24 mmol/L Anion Gap 7.0 mmol/L Blood Urea Nitrogen 33 mg/dl Creatinine 2.90 mg/dl Est Creatinine Clear Calc Drug Dose 23.1 ml/min Estimated GFR () 20.0 Estimated GFR (Non- 17.2 BUN/Creatinine Ratio 11.5 Random Glucose 142 mg/dl Calcium Level 8.8 mg/dl Assessment & Plan CHAGO - slowly improving - likely ATN in the setting of tacrolimus toxicity - renal ultrasound unremarkable - Nephrology consulted - hold tacrolimus - continue IVF's h/o Renal transplant - continue prednisone and ciprofloxacin - hold tacrolimus as noted above - hold fluconazole (given interaction with tacrolimus) - Nephrology discussed case with transplant team HTN - continue metoprolol - hold Lasix in the setting of CHAGO and receiving IVF's PTLD - on CHOP-R through [facility] - they are aware of patient's hospitalization and chemotherapy temporarily on hold - continue allopurinol Open wound of LLE - Wound care consulted - continue collagenase DVT prophylaxis with heparin sq Consultants: Nephrology Procedures: Renal ultrasound 1. Atrophic echogenic [place] kidneys 2. Left lower quadrant transplant kidney. No hydronephrosis. No perinephric fluid collections. Patent renal artery and vein. Current Inpatient Medications: Current Inpatient Medications Medications (Trade) Dose Ordered Sig/Cherry Route Start Time Stop Time Status Last Admin Dose Admin Heparin Sodium (Porcine) (Heparin Sq 5000 Unit/0.5ml) 5,000 unit Q8 SQ 10/26/16 22:00 11/25/16 21:59 10/28/16 13:53 5,000 UNIT Acetaminophen (Tylenol Tab) 650 mg Q4H PRN PO 10/26/16 18:45 11/25/16 18:44 Polyethylene (Miralax Powder Packet) 17 gm DAILY PO 10/27/16 09:00 11/26/16 08:59 10/27/16 09:25 17 GM Allopurinol (Zyloprim Tab) 200 mg QAM PO 10/27/16 09:00 11/26/16 08:59 10/28/16 08:31 200 MG Ascorbic Acid (Vitamin C Tab) 500 mg QAM PO 10/27/16 09:00 11/26/16 08:59 10/28/16 08:30 500 MG Cholecalciferol (Vitamin D Tab) 1,000 inter.unit QAM PO 10/27/16 09:00 11/26/16 08:59 10/28/16 08:31 1,000 INTER.UNIT Ciprofloxacin (Cipro Tab) 500 mg QAM PO 10/27/16 09:00 11/26/16 08:59 10/28/16 08:30 500 MG Docusate Sodium (coLACE CAP) 100 mg BID PRN PO 10/26/16 19:00 11/25/16 18:59 10/27/16 09:24 100 MG Estrogens Conjugated (Premarin Tab) 0.625 mg QAM PO 10/27/16 09:00 11/26/16 08:59 10/28/16 08:31 0.625 MG Fluticasone Propionate (Flonase Nasal [place]) 2 sprays DAILY NA 10/27/16 09:00 11/26/16 08:59 10/28/16 08:29 2 SPRAYS Lorazepam (Ativan Tab) 0.5 mg BID PRN PO 10/26/16 19:00 11/25/16 18:59 Metoprolol Succinate (Toprol Xl Tab) 50 mg QAM PO 10/27/16 09:00 11/26/16 08:59 10/28/16 08:31 50 MG Ondansetron HCl (Zofran Tab) 8 mg Q8 PRN PO 10/26/16 19:00 11/25/16 18:59 Oxycodone HCl (Roxicodone Immediate Rel Tab) 7.5 mg Q4H PRN PO 10/26/16 19:00 11/09/16 18:59 10/27/16 21:13 7.5 MG Polysaccharide Iron Complex (Niferex-150 w/ Vit C Cap) 150 mg BID PO 10/26/16 21:00 11/25/16 20:59 10/28/16 08:30 150 MG Prednisone (PredniSONE TAB) 10 mg DAILY PO 10/27/16 09:00 11/26/16 08:59 10/28/16 08:30 10 MG Prochlorperazine Maleate (Compazine Tab) 10 mg Q6H PRN PO 10/26/16 19:00 11/25/16 18:59 Calcium/Vitamin D (Caltrate Plus Tab) 1 tab BID PO 10/26/16 21:00 11/25/16 20:59 10/28/16 08:30 1 TAB Pantoprazole Sodium (Protonix Tab) 40 mg BID PO 10/26/16 21:00 11/25/16 20:59 10/28/16 08:30 40 MG Heparin Sodium (Porcine) (Heparin 100 Unit/ml 5ml Flush) 5 ml PRN PRN IV 10/27/16 00:15 11/26/16 00:14 Collagenase (Santyl Oint) 1 appln DAILY EXT 10/27/16 11:45 11/26/16 11:44 10/27/16 12:57 1 APPLN Multi-Ingredient Ointment 1 appln 1 appln PRN PRN EXT 10/27/16 12:30 11/26/16 12:29 10/27/16 12:46 1 APPLN Sodium Chloride (Nss 1000ml) 1,000 ml @ 100 mls/hr Q10H IV 10/28/16 13:00 11/27/16 12:59 10/28/16 13:49 100 MLS/HR
[2016-10-28] MEDS: OXYCODONE HCL IR 5 MG TAB (IMMEDIATE RELEASE) PO PRN (22:20)
[2016-10-29 06:06] LABS: HEMATOCRIT 24.8 % (37-47); MEAN CELL VOLUME 80.8 fL (80-100); MEAN CORPUSCULAR HEMOGLOBIN 25.4 pg (25-34); MEAN CORPUSCULAR HGB CONC 31.5 g/dl (32-36); MEAN PLATELET VOLUME 10.5 fL (7.4-10.4); PLATELET COUNT 464 K/uL (130-400); RED BLOOD COUNT 3.07 M/uL (4.2-5.4); WHITE BLOOD COUNT 9.92 K/uL (4.8-10.8)
[2016-10-29] MEDS: HEPARIN SOD 5000 UNIT/0.5 ML CARP SQ SCH ×3 (06:26→22:09)
[2016-10-29] MEDS: OXYCODONE HCL IR 5 MG TAB (IMMEDIATE RELEASE) PO PRN ×2 (06:35→12:11)
[2016-10-29 07:30] VITALS: BP 138/85; PULSE 70; TEMP 36.7; O2SAT 96
[2016-10-29 07:37] LABS: BUN/CREATININE RATIO 10.6 (10-20); CALCIUM 9.1 mg/dl (8.5-10.1); CREATININE 2.7 mg/dl (0.60-1.20); POTASSIUM 5.2 mmol/L (3.5-5.1)
[2016-10-29] MEDS: PANTOprazole SOD 40 MG TAB PO SCH ×2 (07:44→20:27)
[2016-10-29] MEDS: ASCORBIC ACID 500 MG TAB PO SCH (07:44)
[2016-10-29] MEDS: ALLOPURINOL 100 MG TAB PO SCH (07:44)
[2016-10-29] MEDS: CHOLECALCIFEROL 1000 INTER.UNIT TAB PO SCH (07:44)
[2016-10-29] MEDS: ESTROGENS, CONJUGATED 0.625 MG TAB PO SCH (07:45)
[2016-10-29] MEDS: CALCIUM 600MG + VIT D 400 IU TAB PO SCH ×2 (07:45→20:28)
[2016-10-29] MEDS: IRON COMPLEX POLYSACCHARIDE W/VIT C 150 MG CAP PO SCH ×2 (07:45→20:27)
[2016-10-29] MEDS: FLUTICASONE PROPIONATE NA SPR 16 GM BTL SCH ×2 (07:45→08:00)
[2016-10-29] MEDS: CIPROFLOXACIN 500 MG TAB PO SCH (07:45)
[2016-10-29] MEDS: COLLAGENASE OINT 30 GM TUBE EXT SCH (07:46)
[2016-10-29] MEDS: METOPROLOL SUCC 50MG EXT REL TAB PO SCH (07:46)
[2016-10-29] MEDS: POLYETHYLENE (MIRALAX) 17 GM PACK PO SCH ×3 (07:46→15:51)
[2016-10-29] MEDS: SODIUM CHLORIDE 0.9% 1000ML 1,000 ML IV SCH (07:47)
[2016-10-29] MEDS: DOCUSATE SODIUM 100 MG CAP PO SCH ×2 (09:43→20:28)
--- NOTE | 2016-10-29 10:53 | Nephrology Progress Note ---
Nephrology Progress Note Date of Service: Oct 29, 2016. Subjective N still limits po intake; denies emesis/diarrhea. not dyspneic. no pain. ambulatory; does note edema Objective Date Time Temp Pulse Resp B/P Pulse Ox O2 Delivery O2 Flow Rate FiO2 10/29/16 08:00 Room Air 10/29/16 07:30 36.7 70 18 138/85 96 Room Air 10/28/16 23:35 36.5 72 18 161/97 97 Room Air 10/28/16 23:30 Room Air 10/28/16 16:40 36.5 65 16 139/86 96 Room Air 10/28/16 16:30 Room Air 10/28/16 12:00 36.3 67 18 136/85 97 Room Air Physical Exam: GENERAL: Awake, alert and oriented x3. on RA, ambulatory w/o asst EYES: No scleral icterus. ENT: Moist mucous membranes. NECK: Supple. PULMONARY: Clear to auscultation though diminished CARDIAC: Regular rate and rhythm. ABDOMEN: Bowel sounds are positive, soft, nontender and nondistended. EXTREMITIES: No clubbing, cyanosis; trace BL edema NEUROLOGIC: [place], fluent speech DERMATOLOGIC: No rash noted. Current Inpatient Medications Medications (Trade) Dose Ordered Sig/Cherry Route Start Time Stop Time Status Last Admin Dose Admin Heparin Sodium (Porcine) (Heparin Sq 5000 Unit/0.5ml) 5,000 unit Q8 SQ 10/26/16 22:00 11/25/16 21:59 10/29/16 06:26 5,000 UNIT Acetaminophen (Tylenol Tab) 650 mg Q4H PRN PO 10/26/16 18:45 11/25/16 18:44 Polyethylene (Miralax Powder Packet) 17 gm DAILY PO 10/27/16 09:00 11/26/16 08:59 10/29/16 07:46 17 GM Allopurinol (Zyloprim Tab) 200 mg QAM PO 10/27/16 09:00 11/26/16 08:59 10/29/16 07:44 200 MG Ascorbic Acid (Vitamin C Tab) 500 mg QAM PO 10/27/16 09:00 11/26/16 08:59 10/29/16 07:44 500 MG Cholecalciferol (Vitamin D Tab) 1,000 inter.unit QAM PO 10/27/16 09:00 11/26/16 08:59 10/29/16 07:44 1,000 INTER.UNIT Ciprofloxacin (Cipro Tab) 500 mg QAM PO 10/27/16 09:00 11/26/16 08:59 10/29/16 07:45 500 MG Estrogens Conjugated (Premarin Tab) 0.625 mg QAM PO 10/27/16 09:00 11/26/16 08:59 10/29/16 07:45 0.625 MG Fluticasone Propionate (Flonase Nasal [place]) 2 sprays DAILY NA 10/27/16 09:00 11/26/16 08:59 10/29/16 07:45 2 SPRAYS Lorazepam (Ativan Tab) 0.5 mg BID PRN PO 10/26/16 19:00 11/25/16 18:59 Metoprolol Succinate (Toprol Xl Tab) 50 mg QAM PO 10/27/16 09:00 11/26/16 08:59 10/29/16 07:46 50 MG Ondansetron HCl (Zofran Tab) 8 mg Q8 PRN PO 10/26/16 19:00 11/25/16 18:59 Oxycodone HCl (Roxicodone Immediate Rel Tab) 7.5 mg Q4H PRN PO 10/26/16 19:00 11/09/16 18:59 10/29/16 06:35 7.5 MG Polysaccharide Iron Complex (Niferex-150 w/ Vit C Cap) 150 mg BID PO 10/26/16 21:00 11/25/16 20:59 10/29/16 07:45 150 MG Prednisone (PredniSONE TAB) 10 mg DAILY PO 10/27/16 09:00 11/26/16 08:59 10/29/16 07:44 10 MG Prochlorperazine Maleate (Compazine Tab) 10 mg Q6H PRN PO 10/26/16 19:00 11/25/16 18:59 Calcium/Vitamin D (Caltrate Plus Tab) 1 tab BID PO 10/26/16 21:00 11/25/16 20:59 10/29/16 07:45 1 TAB Pantoprazole Sodium (Protonix Tab) 40 mg BID PO 10/26/16 21:00 11/25/16 20:59 10/29/16 07:44 40 MG Heparin Sodium (Porcine) (Heparin 100 Unit/ml 5ml Flush) 5 ml PRN PRN IV 10/27/16 00:15 11/26/16 00:14 Collagenase (Santyl Oint) 1 appln DAILY EXT 10/27/16 11:45 11/26/16 11:44 10/29/16 07:46 1 APPLN Multi-Ingredient Ointment 1 appln 1 appln PRN PRN EXT 10/27/16 12:30 11/26/16 12:29 10/27/16 12:46 1 APPLN Sodium Chloride (Nss 1000ml) 1,000 ml @ 100 mls/hr Q10H IV 10/28/16 13:00 11/27/16 12:59 10/29/16 07:47 100 MLS/HR Docusate Sodium (coLACE CAP) 100 mg BID PO 10/29/16 09:00 11/28/16 08:59 10/29/16 09:43 100 MG Last 24 Hours Test 10/29/16 05:50 White Blood Count 9.92 K/uL Red Blood Count 3.07 M/uL Hemoglobin 7.8 g/dL Hematocrit 24.8 % Mean Corpuscular Volume 80.8 fL Mean Corpuscular Hemoglobin 25.4 pg Mean Corpuscular Hemoglobin Concent 31.5 g/dl RDW Standard Deviation 50.0 fL RDW Coefficient of Variation 17.2 % Platelet Count 464 K/uL Mean Platelet Volume 10.5 fL Sodium Level 142 mmol/L Potassium Level 5.2 mmol/L Chloride Level 111 mmol/L Carbon Dioxide Level 22 mmol/L Anion Gap 9.0 mmol/L Blood Urea Nitrogen 29 mg/dl Creatinine 2.70 mg/dl Est Creatinine Clear Calc Drug Dose 24.9 ml/min Estimated GFR () 21.8 Estimated GFR (Non- 18.8 BUN/Creatinine Ratio 10.6 Random Glucose 110 mg/dl Calcium Level 9.1 mg/dl Assessment & Plan 56 y/o renal transplant patient w/ baseline creatinine 1.8 who unfortunately developed lymphoma, s/p R CHOP first round a few weeks ago and between medications (like antifungal) and po intake in the wake of this developed ATN from volume depletion and elevated FK levels (peaked at > 20). FK on hold w/ last dose 1 mg 4/7 AM. Goal Prograf level is 3-5. no evidence of rejection so far though this is always a worry in renal transplant. Txplt u/s unremarkable; urine sediment bland. ATN in renal txplt, slowly improving but w/ mild hyperkalemia -change IVF to 1/2 ns w/ 75 mEq/L Na bic at 100 ml hourly -daily bmp -plan to restart FK likely tomorrow but need to see labs first -if renal function worsens rather than current improvement will need transfer to [facility] for renal txplt bx and coordinated therapy between txplt and heme -cont reduced doses of cipro; azole on hold Care coordinated w/ dr Armas. Appreciate consult.
[2016-10-29] MEDS: SODIUM BICARBONATE 8.4% INJ 75 MEQ in SODIUM CHLORIDE 0.45% 1000ML 1,000 ML IV SCH ×2 (12:11→22:07)
--- NOTE | 2016-10-29 14:24 | Progress Note ---
Medicine Progress Note Date & Time of Visit: Oct 29, 2016 at 14:21. Subjective Patient seen and examined. Denies complaints. Ambulating in hallway. Objective Last 8 Hrs Date Time Temp Pulse Resp B/P Pulse Ox O2 Delivery O2 Flow Rate FiO2 10/29/16 08:00 Room Air 10/29/16 07:30 36.7 70 18 138/85 96 Room Air Physical Exam: General-awake; alert; NAD Eyes-EOMI; no scleral icterus Neck-no stridor; trachea midline Lungs-CTA bilaterally; no wheezes/crackles Heart-RRR; no m/r/g Abdomen-soft; NTND; nBS Extremities-1+ edema bilateral LE; no deformity Neuro-no focal deficits Laboratory Results: Last 24 Hours Test 10/29/16 05:50 White Blood Count 9.92 K/uL Red Blood Count 3.07 M/uL Hemoglobin 7.8 g/dL Hematocrit 24.8 % Mean Corpuscular Volume 80.8 fL Mean Corpuscular Hemoglobin 25.4 pg Mean Corpuscular Hemoglobin Concent 31.5 g/dl RDW Standard Deviation 50.0 fL RDW Coefficient of Variation 17.2 % Platelet Count 464 K/uL Mean Platelet Volume 10.5 fL Sodium Level 142 mmol/L Potassium Level 5.2 mmol/L Chloride Level 111 mmol/L Carbon Dioxide Level 22 mmol/L Anion Gap 9.0 mmol/L Blood Urea Nitrogen 29 mg/dl Creatinine 2.70 mg/dl Est Creatinine Clear Calc Drug Dose 24.9 ml/min Estimated GFR () 21.8 Estimated GFR (Non- 18.8 BUN/Creatinine Ratio 10.6 Random Glucose 110 mg/dl Calcium Level 9.1 mg/dl Assessment & Plan CHAGO - slowly improving - likely ATN in the setting of tacrolimus toxicity - renal ultrasound unremarkable - Nephrology consulted - hold tacrolimus - continue IVF's h/o Renal transplant - continue prednisone and ciprofloxacin - hold tacrolimus as noted above - hold fluconazole (given interaction with tacrolimus) - Nephrology discussed case with transplant team HTN - continue metoprolol - hold Lasix in the setting of CHAGO and receiving IVF's PTLD - on CHOP-R through [facility] - they are aware of patient's hospitalization and chemotherapy temporarily on hold - continue allopurinol Open wound of LLE - Wound care consulted - continue collagenase DVT prophylaxis with heparin sq Anticipate discharge home. Consultants: Nephrology Procedures: Renal ultrasound 1. Atrophic echogenic [place] kidneys 2. Left lower quadrant transplant kidney. No hydronephrosis. No perinephric fluid collections. Patent renal artery and vein. Current Inpatient Medications: Current Inpatient Medications Medications (Trade) Dose Ordered Sig/Cherry Route Start Time Stop Time Status Last Admin Dose Admin Heparin Sodium (Porcine) (Heparin Sq 5000 Unit/0.5ml) 5,000 unit Q8 SQ 10/26/16 22:00 11/25/16 21:59 10/29/16 06:26 5,000 UNIT Acetaminophen (Tylenol Tab) 650 mg Q4H PRN PO 10/26/16 18:45 11/25/16 18:44 Polyethylene (Miralax Powder Packet) 17 gm DAILY PO 10/27/16 09:00 11/26/16 08:59 10/27/16 09:25 17 GM Allopurinol (Zyloprim Tab) 200 mg QAM PO 10/27/16 09:00 11/26/16 08:59 10/29/16 07:44 200 MG Ascorbic Acid (Vitamin C Tab) 500 mg QAM PO 10/27/16 09:00 11/26/16 08:59 10/29/16 07:44 500 MG Cholecalciferol (Vitamin D Tab) 1,000 inter.unit QAM PO 10/27/16 09:00 11/26/16 08:59 10/29/16 07:44 1,000 INTER.UNIT Ciprofloxacin (Cipro Tab) 500 mg QAM PO 10/27/16 09:00 11/26/16 08:59 10/29/16 07:45 500 MG Estrogens Conjugated (Premarin Tab) 0.625 mg QAM PO 10/27/16 09:00 11/26/16 08:59 10/29/16 07:45 0.625 MG Fluticasone Propionate (Flonase Nasal [place]) 2 sprays DAILY NA 10/27/16 09:00 11/26/16 08:59 10/28/16 08:29 2 SPRAYS Lorazepam (Ativan Tab) 0.5 mg BID PRN PO 10/26/16 19:00 11/25/16 18:59 Metoprolol Succinate (Toprol Xl Tab) 50 mg QAM PO 10/27/16 09:00 11/26/16 08:59 10/29/16 07:46 50 MG Ondansetron HCl (Zofran Tab) 8 mg Q8 PRN PO 10/26/16 19:00 11/25/16 18:59 Oxycodone HCl (Roxicodone Immediate Rel Tab) 7.5 mg Q4H PRN PO 10/26/16 19:00 11/09/16 18:59 10/29/16 12:11 7.5 MG Polysaccharide Iron Complex (Niferex-150 w/ Vit C Cap) 150 mg BID PO 10/26/16 21:00 11/25/16 20:59 10/29/16 07:45 150 MG Prednisone (PredniSONE TAB) 10 mg DAILY PO 10/27/16 09:00 11/26/16 08:59 10/29/16 07:44 10 MG Prochlorperazine Maleate (Compazine Tab) 10 mg Q6H PRN PO 10/26/16 19:00 11/25/16 18:59 Calcium/Vitamin D (Caltrate Plus Tab) 1 tab BID PO 10/26/16 21:00 11/25/16 20:59 10/29/16 07:45 1 TAB Pantoprazole Sodium (Protonix Tab) 40 mg BID PO 10/26/16 21:00 11/25/16 20:59 10/29/16 07:44 40 MG Heparin Sodium (Porcine) (Heparin 100 Unit/ml 5ml Flush) 5 ml PRN PRN IV 10/27/16 00:15 11/26/16 00:14 Collagenase (Santyl Oint) 1 appln DAILY EXT 10/27/16 11:45 11/26/16 11:44 10/29/16 07:46 1 APPLN Multi-Ingredient Ointment (Eucerin Unscented Cr) 1 appln PRN PRN EXT 10/27/16 12:30 11/26/16 12:29 10/27/16 12:46 1 APPLN Docusate Sodium 100 mg 100 mg BID PO 10/29/16 09:00 11/28/16 08:59 10/29/16 09:43 100 MG Sodium Bicarbonate/ Sodium Chloride (Sodium Bicarbonate 8.4% Inj/1/2 Nss 1000ml) 1,075 ml @ 100 mls/hr [id number] IV 10/29/16 11:30 11/28/16 11:29 10/29/16 12:11 100 MLS/HR
[2016-10-29 16:55] VITALS: BP 124/73; PULSE 64; TEMP 36.4; O2SAT 97
[2016-10-29 23:05] VITALS: BP 184/103; PULSE 69; TEMP 36.9; O2SAT 97
[2016-10-29] MEDS ORDERED: HydrALAZINE HCL 20 MG/ML VIAL IV. STA (23:31)
[2016-10-30 01:30] VITALS: BP 143/80
[2016-10-30] MEDS: OXYCODONE HCL IR 5 MG TAB (IMMEDIATE RELEASE) PO PRN ×2 (04:18→12:30)
[2016-10-30] MEDS: HEPARIN SOD 5000 UNIT/0.5 ML CARP SQ SCH (05:38)
[2016-10-30 05:59] LABS: HEMATOCRIT 26.3 % (37-47); MEAN CELL VOLUME 82.2 fL (80-100); MEAN CORPUSCULAR HEMOGLOBIN 25.9 pg (25-34); MEAN CORPUSCULAR HGB CONC 31.6 g/dl (32-36); MEAN PLATELET VOLUME 10.9 fL (7.4-10.4); PLATELET COUNT 505 K/uL (130-400); WHITE BLOOD COUNT 10.83 K/uL (4.8-10.8)
[2016-10-30 06:34] LABS: BUN/CREATININE RATIO 10.9 (10-20); CALCIUM 9.2 mg/dl (8.5-10.1); CREATININE 2.3 mg/dl (0.60-1.20); POTASSIUM 4.9 mmol/L (3.5-5.1)
[2016-10-30 07:22] VITALS: BP 168/105; PULSE 70; TEMP 36.3; O2SAT 98
[2016-10-30] MEDS: ESTROGENS, CONJUGATED 0.625 MG TAB PO SCH (07:56)
[2016-10-30] MEDS: CALCIUM 600MG + VIT D 400 IU TAB PO SCH (07:56)
[2016-10-30] MEDS: CHOLECALCIFEROL 1000 INTER.UNIT TAB PO SCH (07:56)
[2016-10-30] MEDS: IRON COMPLEX POLYSACCHARIDE W/VIT C 150 MG CAP PO SCH (07:56)
[2016-10-30] MEDS: PANTOprazole SOD 40 MG TAB PO SCH (07:56)
[2016-10-30] MEDS: CIPROFLOXACIN 500 MG TAB PO SCH (07:56)
[2016-10-30] MEDS: ALLOPURINOL 100 MG TAB PO SCH (07:57)
[2016-10-30] MEDS: ASCORBIC ACID 500 MG TAB PO SCH (07:57)
[2016-10-30] MEDS: METOPROLOL SUCC 50MG EXT REL TAB PO SCH (07:57)
[2016-10-30] MEDS: COLLAGENASE OINT 30 GM TUBE EXT SCH (07:57)
[2016-10-30] MEDS: FLUTICASONE PROPIONATE NA SPR 16 GM BTL SCH (07:58)
[2016-10-30] MEDS: DOCUSATE SODIUM 100 MG CAP PO SCH (07:58)
[2016-10-30 08:00] VITALS: BP 164/90
[2016-10-30] MEDS: POLYETHYLENE (MIRALAX) 17 GM PACK PO SCH (08:00)
[2016-10-30] MEDS: SODIUM BICARBONATE 8.4% INJ 75 MEQ in SODIUM CHLORIDE 0.45% 1000ML 1,000 ML IV SCH (08:01)
--- NOTE | 2016-10-30 08:26 | Nephrology Progress Note ---
Nephrology Progress Note Date of Service: Oct 30, 2016. Subjective N still limits po intake; poor sleep ON d/t concerns about BP > got prn meds for it; no sx of chest pain, vision change, breathing problem; denies emesis/ diarrhea. not dyspneic. no pain. ambulatory; does note edema Objective Date Time Temp Pulse Resp B/P Pulse Ox O2 Delivery O2 Flow Rate FiO2 10/30/16 07:22 36.3 70 18 168/105 98 Room Air 10/30/16 01:30 143/80 10/30/16 00:15 Room Air 10/29/16 23:05 36.9 69 17 184/103 97 Room Air 10/29/16 16:55 36.4 64 18 124/73 97 Room Air 10/29/16 16:10 Room Air Physical Exam: GENERAL: Awake, alert and oriented x3. up in chair on RA, ambulatory w/o asst EYES: No scleral icterus. ENT: Moist mucous membranes. NECK: Supple. PULMONARY: Clear to auscultation though diminished CARDIAC: Regular rate and rhythm. ABDOMEN: Bowel sounds are positive, soft, nontender and nondistended. EXTREMITIES: No clubbing, cyanosis; trace BL edema NEUROLOGIC: corbin, fluent speech DERMATOLOGIC: No rash noted. Current Inpatient Medications Medications (Trade) Dose Ordered Sig/Cherry Route Start Time Stop Time Status Last Admin Dose Admin Heparin Sodium (Porcine) (Heparin Sq 5000 Unit/0.5ml) 5,000 unit Q8 SQ 10/26/16 22:00 11/25/16 21:59 10/30/16 05:38 5,000 UNIT Acetaminophen (Tylenol Tab) 650 mg Q4H PRN PO 10/26/16 18:45 11/25/16 18:44 Polyethylene (Miralax Powder Packet) 17 gm DAILY PO 10/27/16 09:00 11/26/16 08:59 10/29/16 15:51 17 GM Allopurinol (Zyloprim Tab) 200 mg QAM PO 10/27/16 09:00 11/26/16 08:59 10/30/16 07:57 200 MG Ascorbic Acid (Vitamin C Tab) 500 mg QAM PO 10/27/16 09:00 11/26/16 08:59 10/30/16 07:57 500 MG Cholecalciferol (Vitamin D Tab) 1,000 inter.unit QAM PO 10/27/16 09:00 11/26/16 08:59 10/30/16 07:56 1,000 INTER.UNIT Ciprofloxacin (Cipro Tab) 500 mg QAM PO 10/27/16 09:00 11/26/16 08:59 10/30/16 07:56 500 MG Estrogens Conjugated (Premarin Tab) 0.625 mg QAM PO 10/27/16 09:00 11/26/16 08:59 10/30/16 07:56 0.625 MG Fluticasone Propionate (Flonase Nasal [place]) 2 sprays DAILY NA 10/27/16 09:00 11/26/16 08:59 10/28/16 08:29 2 SPRAYS Lorazepam (Ativan Tab) 0.5 mg BID PRN PO 10/26/16 19:00 11/25/16 18:59 Metoprolol Succinate (Toprol Xl Tab) 50 mg QAM PO 10/27/16 09:00 11/26/16 08:59 10/30/16 07:57 50 MG Ondansetron HCl (Zofran Tab) 8 mg Q8 PRN PO 10/26/16 19:00 11/25/16 18:59 Oxycodone HCl (Roxicodone Immediate Rel Tab) 7.5 mg Q4H PRN PO 10/26/16 19:00 11/09/16 18:59 10/30/16 04:18 7.5 MG Polysaccharide Iron Complex (Niferex-150 w/ Vit C Cap) 150 mg BID PO 10/26/16 21:00 11/25/16 20:59 10/30/16 07:56 150 MG Prednisone (PredniSONE TAB) 10 mg DAILY PO 10/27/16 09:00 11/26/16 08:59 10/30/16 07:57 10 MG Prochlorperazine Maleate (Compazine Tab) 10 mg Q6H PRN PO 10/26/16 19:00 11/25/16 18:59 Calcium/Vitamin D (Caltrate Plus Tab) 1 tab BID PO 10/26/16 21:00 11/25/16 20:59 10/30/16 07:56 1 TAB Pantoprazole Sodium (Protonix Tab) 40 mg BID PO 10/26/16 21:00 11/25/16 20:59 10/30/16 07:56 40 MG Heparin Sodium (Porcine) (Heparin 100 Unit/ml 5ml Flush) 5 ml PRN PRN IV 10/27/16 00:15 11/26/16 00:14 Collagenase (Santyl Oint) 1 appln DAILY EXT 10/27/16 11:45 11/26/16 11:44 10/30/16 07:57 1 APPLN Multi-Ingredient Ointment (Eucerin Unscented Cr) 1 appln PRN PRN EXT 10/27/16 12:30 11/26/16 12:29 10/27/16 12:46 1 APPLN Docusate Sodium 100 mg 100 mg BID PO 10/29/16 09:00 11/28/16 08:59 10/30/16 07:58 100 MG Sodium Bicarbonate/ Sodium Chloride (Sodium Bicarbonate 8.4% Inj/1/2 Nss 1000ml) 1,075 ml @ 100 mls/hr [id number] IV 10/29/16 11:30 11/28/16 11:29 10/30/16 08:01 100 MLS/HR Last 24 Hours Test 10/30/16 04:44 10/30/16 05:30 White Blood Count 10.83 K/uL Red Blood Count 3.20 M/uL Hemoglobin 8.3 g/dL Hematocrit 26.3 % Mean Corpuscular Volume 82.2 fL Mean Corpuscular Hemoglobin 25.9 pg Mean Corpuscular Hemoglobin Concent 31.6 g/dl RDW Standard Deviation 51.4 fL RDW Coefficient of Variation 17.2 % Platelet Count 505 K/uL Mean Platelet Volume 10.9 fL Nucleated RBC Absolute Count (auto) 0.02 K/uL Nucleated Red Blood Cells % 0.2 % Sodium Level 142 mmol/L Potassium Level 4.9 mmol/L Chloride Level 107 mmol/L Carbon Dioxide Level 29 mmol/L Anion Gap 6.0 mmol/L Blood Urea Nitrogen 25 mg/dl Creatinine 2.30 mg/dl Est Creatinine Clear Calc Drug Dose 29.2 ml/min Estimated GFR () 26.5 Estimated GFR (Non- 22.8 BUN/Creatinine Ratio 10.9 Random Glucose 100 mg/dl Calcium Level 9.2 mg/dl Assessment & Plan 56 y/o renal transplant patient w/ baseline creatinine 1.8 who unfortunately developed lymphoma, s/p R CHOP first round a few weeks ago and between medications (like antifungal) and po intake in the wake of this developed ATN from volume depletion and elevated FK levels (peaked at > 20). FK on hold w/ last dose 1 mg 4/7 AM. Goal Prograf level is 3-5. no evidence of rejection so far though this is always a worry in renal transplant. Txplt u/s unremarkable; urine sediment bland. ATN in renal txplt, slowly improving but w/ HTN and trend to hyperkalemia -change IVF to 1/4 ns w/ 75 mEq/L Na bic at 100 ml hourly >> should help to hold K down and lessen effects on BP (about the same effect as 1/2 NS) -daily bmp -plan to restart FK tonight 0.5 mg bid >>this pt still needs inpt care and lack of timely FK levels impeding her care/ concerning to this provider -if renal function worsens rather than current improvement will need transfer to [facility] for renal txplt bx and coordinated therapy between txplt and heme -cont reduced doses of cipro; azole on hold>I will d/w local heme how long we can feasibly hold the latter Care coordinated w/ dr Armas. Appreciate consult.
[2016-10-30] MEDS ORDERED: [UNRECOGNIZED DRUG - OTHER] IV SCH (08:30)
[2016-10-30] MEDS ORDERED: SODIUM BICARBONATE IV SCH (08:30)
[2016-10-30] MEDS ORDERED: SOD CHLOR IV SCH (08:30)
[2016-10-30] MEDS ORDERED: ECRCR EXT (10:01)
[2016-10-30] MEDS ORDERED: MRLP17 PO (10:01)
[2016-10-30] MEDS ORDERED: DOCU-94 PO (10:01)
[2016-10-30] MEDS ORDERED: SNTO30 EXT (10:01)
[2016-10-30] MEDS ORDERED: HPRIS5M SQ (10:01)
--- NOTE | 2016-10-30 10:05 | Discharge Instructions ---
Discharge Instructions Date of Service Oct 30, 2016. Admission Reason for Admission: CHAGO Discharge Discharge Diagnosis / Problem: Acute Kidney Injury. Tacrolimus toxicity. Discharge Goals Goal(s): Improve disease control Activity Recommendations Activity Level: Up Ad Janine . Additional Information Patient informed of condition: Yes Advance Directives: No DNR: No Level of Care: Other ([facility]) Communicable Disease: No Prognosis: Improving Richardson Catheter: No Instructions / Follow-Up Instructions / Follow-Up Please follow up with Family Medicine Dr. Mei within one week of discharge from [facility]. Please follow up with Nephrology Dr. Clay within one week of discharge from [facility]. Please contact Oncology at [facility] to restart chemotherapy upon discharge from [facility]. Current Hospital Diet Patient's current hospital diet: Renal Diet Discharge Diet Recommended Diet: Regular Diet Pending Studies Studies pending at discharge: yes List of pending studies: Tacrolimus levels Physician Orders On Transfer IV Therapy: Sodium chloride with sodium bicarbonate at 100mL/hr POLST Discussion: Not Applicable Laboratory Results Last 24 Hours Test 10/30/16 05:30 10/30/16 09:10 White Blood Count 10.83 K/uL Red Blood Count 3.20 M/uL Hemoglobin 8.3 g/dL Hematocrit 26.3 % Mean Corpuscular Volume 82.2 fL Mean Corpuscular Hemoglobin 25.9 pg Mean Corpuscular Hemoglobin Concent 31.6 g/dl RDW Standard Deviation 51.4 fL RDW Coefficient of Variation 17.2 % Platelet Count 505 K/uL Mean Platelet Volume 10.9 fL Nucleated RBC Absolute Count (auto) 0.02 K/uL Nucleated Red Blood Cells % 0.2 % Sodium Level 142 mmol/L Potassium Level 4.9 mmol/L Chloride Level 107 mmol/L Carbon Dioxide Level 29 mmol/L Anion Gap 6.0 mmol/L Blood Urea Nitrogen 25 mg/dl Creatinine 2.30 mg/dl Est Creatinine Clear Calc Drug Dose 29.2 ml/min Estimated GFR () 26.5 Estimated GFR (Non- 22.8 BUN/Creatinine Ratio 10.9 Random Glucose 100 mg/dl Calcium Level 9.2 mg/dl Medical Emergencies . Who to Call and When: Medical Emergencies: If at any time you feel your situation is an emergency, please call 911 immediately. . Non-Emergent Contact Non-Emergency issues call your: Primary Care Provider, Jigger Artisan, Oncologist . . "Provider Documentation" section prepared by Karely Rollins. Core Measure Problem Core Measures: None
[2016-10-30 10:19] VITALS: BP 158/92; PULSE 80; TEMP 36.4; O2SAT 97
[2016-10-30 12:03] VITALS: BP 161/95; PULSE 79; TEMP 36.3; O2SAT 97
[2016-10-30 12:15] VITALS: BP 161/95; PULSE 79; TEMP 36.3; O2SAT 97
--- NOTE | 2016-10-30 18:31 | Discharge Summary ---
Discharge Summary Date of Service Oct 30, 2016. Discharge Summary Admission Date: Oct 26, 2016 at 18:44 Discharge Date: Oct 30, 2016 Discharge Disposition: Acute care facility Principal Diagnosis: CHAGO, likely 2/2 tacrolimus toxicity Procedures: Renal ultrasound 1. Atrophic echogenic [place] kidneys 2. Left lower quadrant transplant kidney. No hydronephrosis. No perinephric fluid collections. Patent renal artery and vein. Consultations: Nephrology Medication Reconciliation New Medications: Collagenase (Santyl) 250 Unit/Gm Oin 1 APPLN EXT DAILY for 30 Days Eucerin (Hydrocerin) 360 Appln/120 Gm Cr 1 APPLN EXT PRN PRN for To b/l lower extremity for 30 Days Heparin Sod (Porcine) (Heparin Sodium) 5,000 Unit/0.5 Ml Inj 5000 UNIT SQ Q8 for 30 Days Polyethylene (Miralax) 17 Gm Pow 17 GM PO DAILY for 30 Days Continued Medications: Allopurinol (Zyloprim) 100 Mg Tab 200 MG PO QAM, TAB Ascorbic Acid (Vitamin C) 500 Mg Tab 500 MG PO QAM Aspirin (Aspirin EC Low Dose) 81 Mg Ectab 81 MG PO QAM Calcium Carbonate-Cholecalcife (Caltrate 600+D) 1 Tab Tab 1 TAB PO QAM Cholecalciferol (Vitamin D3) 1,000 Unit Tab 1000 UNITS PO QAM Ciprofloxacin Hcl (Cipro) 500 Mg Tab 500 MG PO QAM, TAB [facility] ANTIBIOTIC Docusate Sodium (Colace) 100 Mg Cap 100 MG PO BID for 30 Days (This prescription has been renewed) Estrogens, Conjugated (Premarin) 0.625 Mg Tab 0.625 MG PO QAM, TAB Fluticasone Propionate (Nasal) (Flonase Allergy Relief) 50 Mcg/Act Spr 2 SPRAYS NA DAILY Lorazepam (Ativan) 0.5 Mg Tab 0.5 MG PO BID PRN for Anxiety, TAB Metoprolol Succ (Toprol Xl) (Toprol-Xl) 50 Mg Tabcr 50 MG PO QAM, TAB Omeprazole (Prilosec) 20 Mg Capcr 20 MG PO BID, CAP Ondansetron Hcl (Zofran) 4 Mg Tab 8 MG PO Q8 PRN for Nausea, TAB Oxycodone Ir (Roxicodone Ir) 5 Mg Tab 7.5 MG PO Q4H PRN for Pain, TAB Polysaccharide Iron Complex (Ferrex 150) 150 Mg Cap 150 MG PO BID Prednisone (Prednisone) 20 Mg Tab 10 MG PO DAILY, TAB Prochlorperazine Maleate (Compazine) 10 Mg Tab 10 MG PO Q6H PRN for Nausea or Vomiting, TAB Discontinued Medications: Fluconazole (Diflucan) 200 Mg Tab 200 MG PO DAILY, TAB [facility] ANTIFUNGAL MED Furosemide (Lasix) 20 Mg Tab 20 MG PO DAILY PRN for edema, TAB Tacrolimus (Prograf) 1 Mg Cap 1 MG PO BID for 90 Days, #180 CAP Admission Information HPI (per Admitting provider): 56 yo F with a history of two renal transplants in the past on chronic immunosuppressive therapy with tacrolimus was referred to the hospital for electrolyte abnormalities and worsening renal failure. She was diagnosed with lymphoma in Aug 2016 and is receiving treatment at [facility]. She started chemotherapy (CHOP-R) on 10/06 and subsequently became ill from the chemo, including dehydration and a spike in her tacrolimus level. She was also given Neupogen and currently has a WBC of 18K but denies any fevers, cough or other signs of infection at this point. She does have a small leg wound that is chronic and does not appear infected with no surrounding erythema or drainage. She also does report some chills, but this she believes is since the tacrolimus levels have been elevated and is not related to infection. Of note, she takes her temperature daily. She began receiving daily IVF last week in the [facility] in order to avoid having her in the hospital, and there was an initial improvement in her renal function. However, her current numbers reflected a Creat 3.5 (up from baseline 2.5) and a K of 6.1. On arrival in the ER labs reveal a normal potassium (4.3) and a creat 3.2. She is otherwise feeling well and is hungry and asking for food. Denies nausea, vomiting, urinary symptoms, headache, enlarged lymph nodes, diarrhea or constipation. She does have early satiety and eats multiple frequent small meals, and she also reports some chronic abdominal pain that is stable and well controlled on her current dose of oxycodone. Physical Exam (per Admitting): General Appearance: WD/WN, no apparent distress Head: normocephalic, atraumatic Eyes: normal inspection, PERRL, EOMI, sclerae normal ENT: normal ENT inspection, hearing grossly normal, pharynx normal Neck: supple, no adenopathy, thyroid normal, no JVD, trachea midline Respiratory/Chest: chest non-tender, lungs clear, normal breath sounds, no respiratory distress, no accessory muscle use Cardiovascular: regular rate, rhythm, no edema, no gallop, no JVD, no murmur , normal peripheral pulses Abdomen/GI: normal bowel sounds, soft (not distended), + tenderness (LLQ- chronic ), + pertinent finding (NO guardiing or rebound) Back: normal inspection, no CVA tenderness Extremities/Musculoskelatal: normal inspection, no pedal edema, normal range of motion Neurologic/Psych: accounting supervisor II-XII nml as tested, no motor/sensory deficits, alert , normal mood/affect, oriented x 3 Skin: normal color, warm/dry, + pertinent finding (small 1cm Stg II ulcer with granulation tissue present and no surrounding erythema-L leg) Hospital Course Patient was admitted with CHAGO, likely ATN in the setting of tacrolimus toxicity. Renal ultrasound was unremarkable. Nephrology was consulted. Tacrolimus and fluconazole were held, given interaction. Patient received IVF' s. Creatinine, which was 3.5 on admission, trended down to 2.3 on the day of transfer (baseline around 2.5). Nephrology recommended transfer to a tertiary care center for management of tacrolimus as we are unable to obtain tacrolimus levels in a timely fashion to appropriately restart and adjust tacrolimus dosing. Lisinopril and PRN Lasix were also held given CHAGO on admission. Patient was continued on prednisone for her h/o renal transplant. Patient is currently receiving CHOP-R through [facility] for PTLD; her last treatment was 3 weeks ago and her next dose was due today. [facility] is aware of patient's hospitalization. Patient was continued on prophylactic ciprofloxacin but fluconazole was held as noted above. Patient was continued on the remainder of her home medications with the exceptions noted above. Wound care was consulted for an open wound on patient's LLE and recommended topical applications. Patient deemed stable for transfer to [facility] and patient in agreement with plan. PE on discharge: General- awake; alert; NAD Eyes- EOMI; no scleral icterus Neck- no stridor; trachea midline Lungs- CTA bilaterally; no wheezes/crackles Heart- RRR; no m/r/g Abdomen- soft; NTND; nBS Back- no gross abnormalities Extremities- 1+ edema bilateral LE; no deformity Neuro- no focal deficits Skin- clean based wound to LLE . Total time spent on discharge = This includes examination of the patient, discharge planning, medication reconciliation, and communication with other providers. Discharge Instructions Discharge Instructions Date of Service Oct 30, 2016. Admission Reason for Admission: CHAGO Discharge Discharge Diagnosis / Problem: Acute Kidney Injury. Tacrolimus toxicity. Discharge Goals Goal(s): Improve disease control Activity Recommendations Activity Level: Up Ad Janine . Additional Information Patient informed of condition: Yes Advance Directives: No DNR: No Level of Care: Other ([facility] Communicable Disease: No Prognosis: Improving Richardson Catheter: No Instructions / Follow-Up Instructions / Follow-Up Please follow up with Family Medicine Dr. Mei within one week of discharge from [facility]. Please follow up with Nephrology Dr. Clay within one week of discharge from [facility]. Please contact Oncology at [facility] to restart chemotherapy upon discharge from [facility]. Current Hospital Diet Patient's current hospital diet: Renal Diet Discharge Diet Recommended Diet: Regular Diet Pending Studies Studies pending at discharge: yes List of pending studies: Tacrolimus levels Physician Orders On Transfer IV Therapy: Sodium chloride with sodium bicarbonate at 100mL/hr POLST Discussion: Not Applicable Laboratory Results Last 24 Hours Test 10/30/16 05:30 10/30/16 09:10 White Blood Count 10.83 K/uL Red Blood Count 3.20 M/uL Hemoglobin 8.3 g/dL Hematocrit 26.3 % Mean Corpuscular Volume 82.2 fL Mean Corpuscular Hemoglobin 25.9 pg Mean Corpuscular Hemoglobin Concent 31.6 g/dl RDW Standard Deviation 51.4 fL RDW Coefficient of Variation 17.2 % Platelet Count 505 K/uL Mean Platelet Volume 10.9 fL Nucleated RBC Absolute Count (auto) 0.02 K/uL Nucleated Red Blood Cells % 0.2 % Sodium Level 142 mmol/L Potassium Level 4.9 mmol/L Chloride Level 107 mmol/L Carbon Dioxide Level 29 mmol/L Anion Gap 6.0 mmol/L Blood Urea Nitrogen 25 mg/dl Creatinine 2.30 mg/dl Est Creatinine Clear Calc Drug Dose 29.2 ml/min Estimated GFR () 26.5 Estimated GFR (Non- 22.8 BUN/Creatinine Ratio 10.9 Random Glucose 100 mg/dl Calcium Level 9.2 mg/dl Medical Emergencies . Who to Call and When: Medical Emergencies: If at any time you feel your situation is an emergency, please call 911 immediately. . Non-Emergent Contact Non-Emergency issues call your: Primary Care Provider, Computer Systems Designer, Oncologist . . "Provider Documentation" section prepared by Karely Rollins. Core Measure Problem Core Measures: None Additional Copies To Dontae Mei M.D.
[2016-10-30] MEDS ORDERED: TACROLIMUS 0.5 MG CAP PO SCH (21:00)
[2016-10-31 08:45] LABS: FK506 TACROLIMUS HIGHLY SENS 9.7 MCG/L (5-20)
[2017-06-19] MEDS ORDERED: SULF800T23 PO (11:46)
== END 2016-10-30 13:10 | disposition short-term general hospital (02) | DRG 683 ==
LOC: ENRESERVDT → CANRESERV → ENRESERVTM → C.EDB 16:44 → C.2T 18:44 → C.4E 10-28 10:03
PROVIDERS: ADMIT Hospitalist; ATTEND Internal Medicine
DX: N17.0 Acute kidney failure with tubular necrosis (principal); C85.90 Non-Hodgkin lymphoma, unspecified, unspecified site; D47.Z1 Post-transplant lymphoproliferative disorder (PTLD); Z94.0 Kidney transplant status; S36.899A Unspecified injury of other intra-abdominal organs, initial encounter; E87.5 Hyperkalemia; K21.9 Gastro-esophageal reflux disease without esophagitis; I12.9 Hypertensive chronic kidney disease with stage 1 through stage 4 chronic kidney disease, or unspecified chronic kidney disease; N18.3 Chronic kidney disease, stage 3 (moderate); D27.9 Benign neoplasm of unspecified ovary; M85.80 Other specified disorders of bone density and structure, unspecified site; Z80.3 Family history of malignant neoplasm of breast; Z80.7 Family history of other malignant neoplasms of lymphoid, hematopoietic and related tissues; Z79.82 Long term (current) use of aspirin; Z79.52 Long term (current) use of systemic steroids; T45.1X5A Adverse effect of antineoplastic and immunosuppressive drugs, initial encounter; Y92.9 Unspecified place or not applicable; Z92.21 Personal history of antineoplastic chemotherapy; D72.829 Elevated white blood cell count, unspecified; F32.9 Major depressive disorder, single episode, unspecified; D64.9 Anemia, unspecified; S81.802A Unspecified open wound, left lower leg, initial encounter; X58.XXXA Exposure to other specified factors, initial encounter; K12.1 Other forms of stomatitis

== ENCOUNTER 2017-01-15 04:29 | Emergency (ER) | payer OTHER ==
[~2017-01-15] VITALS: Ht 157.5 cm; Wt 97.0 kg
[~2017-01-15 04:29] MED LIST changes: -ACET-1311 PO; +ALLO100T PO; +ECRCR EXT; -FLUC200T4 PO; -FURO-85 PO; +HPRIS5M SQ; +MRLP17 PO; -PANT40TA PO; -SILV1CRE73 TOP; +SNTO30 EXT; -TACR1CAP PO
[2017-01-15 04:35] VITALS: TEMP 36.6; Ht 157.5 cm; Wt 97.0 kg
[2017-01-15] MEDS ORDERED: SODIUM CHLORIDE 0.9% 1000ML 1,000 ML IV STA (04:47)
[2017-01-15] MEDS ORDERED: FENTANYL CITRATE INJ 50 MCG/1 ML 2 ML VIAL IV STA ×2 (04:47→06:08)
[2017-01-15] MEDS ORDERED: ONDANSETRON INJ 2 MG/ML 2 ML VIAL IV STA (04:47)
[2017-01-15] MEDS ORDERED: OXYC1TAB3 PO (04:51)
[2017-01-15] MEDS ORDERED: TRAM-10 PO (04:52)
[2017-01-15] MEDS ORDERED: TACR1CAP PO (04:52)
[2017-01-15] MEDS ORDERED: SILV1CRE73 TOP (04:54)
[2017-01-15] MEDS ORDERED: FURO-85 PO (04:54)
[2017-01-15] MEDS ORDERED: PRED10TA PO (04:55)
[2017-01-15 05:14] LABS: CALCIUM 9.3 mg/dl (8.5-10.1)
[2017-01-15 05:16] LABS: BUN/CREATININE RATIO 27.9 (10-20); CREATININE 1.2 mg/dl (0.60-1.20)
[2017-01-15 05:25] LABS: HEMATOCRIT 34.1 % (37-47); MEAN CELL VOLUME 99.4 fL (80-100); MEAN CORPUSCULAR HEMOGLOBIN 30.6 pg (25-34); MEAN CORPUSCULAR HGB CONC 30.8 g/dl (32-36); MEAN PLATELET VOLUME 11.3 fL (7.4-10.4); PLATELET COUNT 218 K/uL (130-400); RED BLOOD COUNT 3.43 M/uL (4.2-5.4); WHITE BLOOD COUNT 66.89 K/uL (4.8-10.8)
[2017-01-15 05:37] LABS: ANISOCYTOSIS PRESENT; BASO % 0.1 %; BASO ABS # 0.09 K/uL (0-0.2); COMPLETE YES; IG% 8.3 %; LYMPH % 3.6 %; LYMPH ABS # 2.39 K/uL (1.2-3.4); MONO % 2.5 %; NEUT % 85.5 %; PLT ESTIMATE NORMAL
[2017-01-15] MEDS ORDERED: PROCHLORPERAZINE 5 MG/ML 2 ML VIAL IV STA (05:58)
[2017-01-15] MEDS ORDERED: PROCHLORPERAZINE 5 MG/ML 2 ML VIAL ONE (05:59)
[2017-01-15] MEDS ORDERED: PIPERACILLIN/TAZOBACTAM 4.5 GM/100ML D5W IV STA (06:08)
[2017-01-15] MEDS ORDERED: SODIUM CHLORIDE 0.9% 500ML 500 ML IV STA (06:45)
[2017-01-15] MEDS ORDERED: VANCOMYCIN INJ 1,250 MG in SODIUM CHLORIDE 0.9% 500ML 500 ML IV STA (06:46)
[2017-01-15 06:52] VITALS: O2SAT 94
--- NOTE | 2017-01-15 07:11 | EMERGENCY ROOM VISIT NOTE ---
History Report prepared by Jose Mibjuliette: Teo Ferrer Under the Supervision of: Dr. Grace Luna M.D. First contact with patient: 04:31 Chief Complaint: ABDOMINAL PAIN Stated Complaint: ABDOMINAL PAIN History of Present Illness The patient is a 56 year old female who presents to the Emergency Room by EMS with complaints of constant abdominal pain beginning 3.5 hours ago. 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 She had a PET scan and CT scan at the cancer clinic last week at the [facility] in [place]. The patient has a history of two abdominal hernias, and states that her pain is located in a similar area. She was given Morphine en route, but states that nothing has improved her pain. She also complains of nausea. The patient states that her pain woke her from sleep at 5 AM. She denies any recent cough. Source of History: patient Onset: Today Position: abdomen Timing: constant Modifying Factors (Relieving): other (none) Associated Symptoms: + nausea, No cough Review of Systems See HPI for pertinent positives & negatives. A total of 10 systems reviewed and were otherwise negative. Past Medical & Surgical Medical Problems: (1) CHAGO (acute kidney injury) (2) Depression (3) Dermoid cyst of ovary (4) GERD (gastroesophageal reflux disease) (5) HTN (hypertension) (6) Lymphoma (7) Osteopenia (8) PTLD (post-transplant lymphoproliferative disorder) Surgical Problems: (1) H/O tubal ligation (2) History of appendectomy (3) Renal transplant, status post (4) retina detachment repair (5) S/P lumbar fusion (6) S/P GENE-BSO Family History FH: breast cancer SISTER FH: lymphoma FATHER ( at age 72) Social History Smoking Status: Never Smoker Drug Use: none Marital Status: Occupation Status: disabled Current/Historical Medications Scheduled Ascorbic Acid (Vitamin C), 500 MG PO QAM Aspirin (Aspirin EC Low Dose), 81 MG PO QAM Calcium Carbonate-Cholecalcife (Caltrate 600+D), 1 TAB PO QAM Cholecalciferol (Vitamin D3), 1,000 UNITS PO QAM Docusate Sodium (Colace), 100 MG PO BID Estrogens, Conjugated (Premarin), 0.625 MG PO QAM Fluticasone Propionate (Nasal) (Flonase Allergy Relief), 2 SPRAYS NA DAILY Furosemide (Lasix), 20 MG PO DAILY Metoprolol Succ (Toprol Xl) (Toprol-Xl), 50 MG PO QAM Omeprazole (Prilosec), 20 MG PO BID Polysaccharide Iron Complex (Ferrex 150), 150 MG PO BID Prednisone (Prednisone), 10 MG PO DAILY Silver Sulfadiazine (Silvadene), 1 APPLN TOP DAILY Tacrolimus (Prograf), 2 CAP PO BID Scheduled PRN Lorazepam (Ativan), 0.5 MG PO BID PRN for Anxiety Oxycodone Immediate Rel Tab (Roxicodone Ir), 7.5 MG PO Q4H PRN for Pain Tramadol (Ultram), 50 MG PO Q8H PRN for Moderate Pain Allergies Coded Allergies: No Known Allergies (Unverified , 01/15/17) Physical Exam Vital Signs Date Time Temp Pulse Resp B/P (MAP) Pulse Ox O2 Delivery O2 Flow Rate FiO2 01/15/17 06:52 106 24 153/95 94 Nasal Cannula 4.0 01/15/17 06:52 94 Nasal Cannula 4.0 01/15/17 06:31 108 18 173/113 95 Room Air 01/15/17 05:26 100 20 187/122 94 Nasal Cannula 4.0 01/15/17 04:41 94 01/15/17 04:35 36.6 90 20 159/104 94 Nasal Cannula 4.0 Physical Exam Vital signs reviewed. General: Chronically ill appearing female, in significant pain. HEENT: No scleral icterus, PERRLA, neck supple. Atraumatic. Cardiovascular: Regular rate and rhythm, no extra sounds. Pulmonary: Clear to auscultation bilaterally, normal work of breathing. Abdomen: Markedly tender abdomen. Positive rebound and guarding. Musculoskeletal: Atraumatic, no peripheral edema. Neurologic: Patient awake alert and oriented x 3. Skin: Warm, dry, no rash Medical Decision & Procedures ER Provider Diagnostic Interpretation: CT results per statrad and my review. CT ABDOMEN & PELVIS: Thickened small bowel in the left abdomen with associated mesenteric edema, stranding/fluid and scattered small foci of free intraperitoneal air consistent with bowel perforation. Several scattered foci of air are present within along the periphery of thickened small bowel loops which may represent extraluminal/ free air although areas of pneumatosis are not excluded. No mesenteric or portal venous gas. Findings are suspicious for enteritis which may be secondary to ischemic, infectious/inflammatory, treatment-related or other cause with associated perforation. Distinct site of small bowel perforation is not obvious although possibly from thickened small bowel loop at midline with associated small extraluminal air collection (Series 2, Images 54 through 57) with other sites of perforation not excluded. No obvious small bowel transition point to suggest high-grade SBO although distal small bowel loops are slightly decompressed. Component of ileus and/or partial obstruction cannot be excluded. Significant interval decrease in mesenteric adenopathy compared to CT dated . Largest remaining mesenteric lymph node measures approximately 2 cm ( Series 2, Image 54). Small fat-containing umbilical hernia. No bowel within the hernia. Colonic diverticula without findings to suggest acute diverticulitis. Left lower quadrant transplant kidney. No hydronephrosis. Atrophic [place] kidneys and RLQ transplant. Mild atelectasis versus infiltrates at the lung bases. Postsurgical changes at the lumbar spine. Laboratory Results 01/15/17 04:10 Red Blood Count 3.43, Mean Corpuscular Volume 99.4, Mean Corpuscular Hemoglobin 30.6, Mean Corpuscular Hemoglobin Concent 30.8, Mean Platelet Volume 11.3, Neutrophils (%) (Auto) 85.5, Lymphocytes (%) (Auto) 3.6, Monocytes (%) (Auto) 2.5, Eosinophils (%) (Auto) 0.0, Basophils (%) (Auto) 0.1, Neutrophils # (Auto) 57.15, Lymphocytes # (Auto) 2.39, Monocytes # (Auto) 1.66, Eosinophils # (Auto) 0.02, Basophils # (Auto) 0.09 01/15/17 04:10 Test 01/15/17 04:10 01/15/17 06:20 White Blood Count 66.89 K/uL (4.8-10.8) Red Blood Count 3.43 M/uL (4.2-5.4) Hemoglobin 10.5 g/dL (12.0-16.0) Hematocrit 34.1 % (37-47) Mean Corpuscular Volume 99.4 fL (80-100) Mean Corpuscular Hemoglobin 30.6 pg (25-34) Mean Corpuscular Hemoglobin Concent 30.8 g/dl (32-36) Platelet Count 218 K/uL (130-400) Mean Platelet Volume 11.3 fL (7.4-10.4) Neutrophils (%) (Auto) 85.5 % Lymphocytes (%) (Auto) 3.6 % Monocytes (%) (Auto) 2.5 % Eosinophils (%) (Auto) 0.0 % Basophils (%) (Auto) 0.1 % Neutrophils # (Auto) 57.15 K/uL (1.4-6.5) Lymphocytes # (Auto) 2.39 K/uL (1.2-3.4) Monocytes # (Auto) 1.66 K/uL (0.11-0.59) Eosinophils # (Auto) 0.02 K/uL (0-0.5) Basophils # (Auto) 0.09 K/uL (0-0.2) RDW Standard Deviation 74.3 fL (36.4-46.3) RDW Coefficient of Variation 20.2 % (11.5-14.5) Immature Granulocyte % (Auto) 8.3 % Immature Granulocyte # (Auto) 5.58 K/uL (0.00-0.02) Platelet Estimate NORMAL Anisocytosis PRESENT Anion Gap 11.0 mmol/L (3-11) Est Creatinine Clear Calc Drug Dose 56.2 ml/min Estimated GFR () 58.1 Estimated GFR (Non- 50.1 BUN/Creatinine Ratio 27.9 (10-20) Calcium Level 9.3 mg/dl (8.5-10.1) Total Bilirubin 0.4 mg/dl (0.2-1) Direct Bilirubin 0.1 mg/dl (0-0.2) Aspartate Amino Transf (AST/SGOT) 22 U/L (15-37) Alanine Aminotransferase (ALT/SGPT) 21 U/L (12-78) Alkaline Phosphatase 108 U/L (45-117) Total Protein 6.6 gm/dl (6.4-8.2) Albumin 3.3 gm/dl (3.4-5.0) Bedside Lactic Acid Venous 3.25 mmol/L (0.90-1.70) Laboratory results per my review. Medications Administered Medications (Trade) Dose Ordered Sig/Cherry Route Start Time Stop Time Status Last Admin Dose Admin Sodium Chloride 1,000 ml @ 125 mls/hr Q8H STAT IV 01/15/17 04:47 01/15/17 12:46 01/15/17 04:47 125 MLS/HR Fentanyl Citrate (Fentanyl Inj) 100 mcg NOW STAT IV 01/15/17 04:47 01/15/17 04:49 DC 01/15/17 04:58 100 MCG Ondansetron HCl (Zofran Inj) 4 mg NOW STAT IV 01/15/17 04:47 01/15/17 04:49 DC 01/15/17 04:57 4 MG Prochlorperazine Edisylate (Compazine Inj) 10 mg NOW STAT IV 01/15/17 05:58 01/15/17 05:59 DC 01/15/17 06:03 10 MG Fentanyl Citrate (Fentanyl Inj) 100 mcg NOW STAT IV 01/15/17 06:08 01/15/17 06:10 DC 01/15/17 06:37 100 MCG Piperacillin Sod/ Tazobactam Sod (Zosyn Iv) 4.5 gm NOW STAT IV 01/15/17 06:08 01/15/17 06:10 DC 01/15/17 06:20 4.5 GM Sodium Chloride 500 ml @ 999 mls/hr Q31M STAT IV 01/15/17 06:45 01/15/17 07:15 DC 01/15/17 06:57 999 MLS/HR ECG Indication: abdominal pain Rate (beats per minute): 90 Rhythm: normal sinus, sinus with SA Findings: Q waves (Anterior) Change: no significant change (10/26/16) ED Course 0445: Past medical records reviewed. The patient was evaluated in room A10. A complete history and physical examination was performed. 0447: Ordered Zofran Inj 4 mg IV, Fentanyl Inj 100 mcg IV, Sodium Chloride 1000 ml @ 125 mls/hr IV. 0558: Ordered Compazine Inj 10 mg IV. 0608: Ordered Zosyn 4.5 gm IV, Fentanyl Inj 100 mcg IV. 0634: Upon reevaluation, the patient is resting comfortably. I discussed laboratory and radiographic results with the patient. She verbalized agreement of the treatment plan. I spoke with Dr. Glover of the [facility] ED. The patient will be transferred to the [facility] ED by air. 0645: Ordered Sodium Chloride 500 ml @ 999 mls/hr IV, Vancomycin HCl 2500/ Sodium Chloride 550 ml @ 200 mls/hr IV. Medical Decision Differential diagnosis: Etiologies such as appendicitis, diverticulitis, PUD, biliary pathology, UTI, pancreatitis, obstruction, mesenteric ischemia, aortic pathology, infections, inflammatory bowel disease, renal colic, as well as others were entertained. This patient was evaluated and appeared to be in significant discomfort. IV access was obtained and laboratory work was drawn. Patient was hydrated with normal saline solution. She was given additional fentanyl for pain relief after the morphine in the ambulance did not help. She has been given Zofran for nausea. Laboratory work reveals a markedly elevated white blood cell count of 67. This is difficult to interpret given her acute pain and lymphoma. CT scan abdomen and pelvis was performed and reveals a small bowel perforation, other findings as above. Point of care lactate is elevated at 3.25. Patient was given IV Zosyn and IV vancomycin. She was given additional 500 mL of normal saline solution. I did speak with Dr. Glover who has accepted the patient in transfer to [facility]. [facility] has been contacted. The patient has consented to the transfer. Consults Time Called: [phone] Consulting Physician: Dr. Glover -[facility] ED Returned Call: [phone] I reviewed the patient's case with Dr. Glover. The patient will be transferred to the [facility] by air. Impression Primary Impression: Small bowel perforation Additional Impressions: S/P kidney transplant Lymphoma Critical Care I have personally spent greater than 45 minutes of critical care time in the direct management of this patient. This includes bedside care, interpretation of diagnostic studies, and testing, discussion with consultants, patient, and family members, and other required patient management activities. This 45 minutes is in excess of all separately billable procedures. Scribe Attestation The scribe's documentation has been prepared under my direction and personally reviewed by me in its entirety. I confirm that the note above accurately reflects all work, treatment, procedures, and medical decision making performed by me. Departure Information Dispostion Transfer Acute Care Facility ([facility] ED by air) Referrals Dontae Mei M.D. (PCP) Patient Instructions My [facility] Problem Qualifiers
[2017-01-15] MEDS ORDERED: VANCOMYCIN INJ 2,500 MG in SODIUM CHLORIDE 0.9% 500ML 500 ML IV SCH (07:30)
--- NOTE | 2017-01-15 07:46 | DIAGNOSTIC IMAGING REPORT ---
CT OF THE ABDOMEN AND PELVIS WITHOUT CONTRAST CLINICAL HISTORY: Ventral hernia, lymphoma, renal transplant, severe mid abdominal pain. COMPARISON STUDY: CT of the abdomen and pelvis October 13, 2016 and renal ultrasound October 26, 2016. TECHNIQUE: Axial images of the abdomen and pelvis were obtained without IV contrast. Images were reviewed in the axial, sagittal, and coronal planes. FINDINGS: Visualized portions of the lower chest demonstrate bilateral airspace opacities which favor atelectasis. Evaluation of the abdomen and pelvis is suboptimal given the lack of IV and oral contrast. There multiple small locules of free air most evident within the left upper quadrant and left mid abdomen. Note is made of wall thickening of several left mid abdominal small bowel loops with moderate adjacent infiltration extending into the mesentery. The source for the free air is likely within the small bowel of the left mid abdomen and possibly shown on axial image 270 of 501. There is no definite transition point to suggest a small bowel obstruction. There is trace ascites. Multiple mesenteric lymph nodes have significantly decreased in size since exam of October 13, 2016. An index node measures 2.5 x 2 cm. It previously measured 3.9 x 3.3 cm. A left lower quadrant renal allograft is unchanged in appearance. There is an atrophic right lower quadrant renal allograft. As expected, both iliamna kidneys are atrophic. Unenhanced images of the spleen, adrenal glands and pancreas are normal. There is a complex fat-containing ventral hernia. No suspicious osseous lesions are present. IMPRESSION: 1. Small amount of pneumoperitoneum which suggests a perforated hollow viscus in the absence of recent surgery/intervention. Several thickened left mid abdominal small bowel loops with adjacent infiltration likely reflects the source for the free air, as described above. This suggests a nonspecific enteritis which could be secondary to ischemic, infectious, inflammatory or treatment related process. Trace ascites. Mild small bowel dilatation without discrete transition point. This could reflect an ileus although a partial small bowel obstruction would be difficult to exclude. 2. Significant interval decrease in size of multiple mesenteric lymph nodes since prior exam of October 13, 2016. 3. Otherwise, unchanged appearance of the abdomen and pelvis since prior exam. Electronically signed by: Francisco Huggins M.D. 01/15/2017 7:45 AM Dictated Date/Time: 01/15/2017 7:29 AM
[2017-01-15] MEDS ORDERED: FENTANYL CITRATE INJ 50 MCG/1 ML 2 ML VIAL IV ONE (08:00)
[2017-01-15 08:19] VITALS: BP 162/91; PULSE 110; O2SAT 92
[2017-06-19] MEDS ORDERED: SULF800T23 PO (11:46)
== END 2017-01-15 08:31 | disposition short-term general hospital (02) ==
LOC: EDBD 04:29 → C.EDA 04:30
DX: K63.1 Perforation of intestine (nontraumatic) (principal); Z94.0 Kidney transplant status; D47.Z1 Post-transplant lymphoproliferative disorder (PTLD); F32.9 Major depressive disorder, single episode, unspecified; D27.9 Benign neoplasm of unspecified ovary; I10 Essential (primary) hypertension; K21.9 Gastro-esophageal reflux disease without esophagitis; M85.80 Other specified disorders of bone density and structure, unspecified site; Z98.51 Tubal ligation status; Z80.3 Family history of malignant neoplasm of breast; Z80.7 Family history of other malignant neoplasms of lymphoid, hematopoietic and related tissues; Z79.82 Long term (current) use of aspirin